=== PATIENT | male | born 1965 | race American Indian/Alaskan Native ===

== ENCOUNTER 2017-05-02 13:36 | Inpatient (IN) | payer OTHER ==
[2017-05-02] MEDS ORDERED: CLEOCIN 600 MG/50 mL 600 MG/50 ML BAG IV ONE (15:38)
[2017-05-02] MEDS ORDERED: ZOFRAN IV ONE (15:47)
[2017-05-02] MEDS ORDERED: MORPHINE IV ONE (15:47)
[2017-05-02 15:59] LABS: Basophils # (Auto) 0.1 K/mm3 (0.0-0.1); Basophils % (Auto) 0.4 % (0.0-1.8); Eosinophils % (Auto) 0.1 % (0.0-4.3); Hematocrit 39.7 % (35.5-45.6); Hemoglobin 13.1 gm/dl (11.8-15.2); Lymphocytes # (Auto) 0.5 K/mm3 (1.2-5.4); Lymphocytes % (Auto) 4.5 % (13.4-35.0); Mean Corpuscular HGB Conc 33 % (32-34); Mean Corpuscular Hemoglobin 29 pg (28-32); Mean Corpuscular Volume 88 fl (84-94); Monocytes % (Auto) 8.2 % (0.0-7.3); Platelet Count 154 K/mm3 (140-440); Red Blood Count 4.52 M/mm3 (3.65-5.03); Red Cell Distribution Width 14.6 % (13.2-15.2)
--- NOTE | 2017-05-02 16:13 | Emergency Department Report ---
Abscess Boil HPI - HPI Chief Complaint: Skin/Abscess/Foreign Body Stated Complaint: POSS STAPH INFECTION Time Seen by Provider: 05/02/17 15:28 Duration: 2 Days Location: Other (right groin) History: Yes Pain, Yes Purulent Drainage, Yes Previous History, No Fever, No Numbness, No Foreign Body, No Insect Bite HPI: This is a 52-year-old male nontoxic, well nourished in appearance, no acute signs of distress presents to the ED with c/o of right groin abscess. Patient stated symptoms started last week and started to drain 3 days ago. Patient had similar episode last year on the left groin and that it lanced and subsided. Patient denies any testicular pain. Patient denies any fever, chills , nausea, vomiting, headache, stiff neck, abdominal pain, numbness or tingling. Patient denies any chest pain or shortness of breath. Patient denies any allergies. Past medical history includes diabetes and CHF. Allergies/Adverse Reactions: Allergies Allergy/AdvReac Type Severity Reaction Status Date / Time No Known Allergies Allergy Unverified 06/02/14 09:21 ED Review of Systems ROS: Stated complaint: POSS STAPH INFECTION Other details as noted in HPI Constitutional: denies: chills, fever Eyes: denies: eye pain, eye discharge, vision change ENT: denies: ear pain, throat pain Respiratory: denies: cough, shortness of breath, wheezing Cardiovascular: denies: chest pain, palpitations Endocrine: no symptoms reported Gastrointestinal: denies: abdominal pain, nausea, diarrhea Genitourinary: denies: urgency, dysuria Musculoskeletal: denies: back pain, joint swelling, arthralgia Skin: denies: rash, lesions Neurological: denies: headache, weakness, paresthesias Psychiatric: denies: anxiety, depression Hematological/Lymphatic: denies: easy bleeding, easy bruising ED Past Medical Hx - Past Medical History Hx Congestive Heart Failure: Yes Hx Diabetes: Yes - Social History Smoking Status: Never Smoker Substance Use Type: Alcohol ED Abscess Boil Physical Exam - Exam General: Vital signs noted. No distress. Alert and acting appropriately. GENERAL: The patient is a well-developed, well-nourished in no apparent distress. Patient is alert and acting appropriately for age. Alert and oriented 3, no apparent distress, normal gait, atraumatic. HEENT: Head is normocephalic and atraumatic. PERRL, Extraocular muscles are intact. Pupils are equal, round, and reactive to light and accommodation. Nares appeared normal. Mouth is well hydrated and without lesions. Mucous membranes are moist. Posterior pharynx clear of any exudate or lesions. Mouth is well hydrated and without lesions. Tonsils not erythematous or swollen. Uvula midline. Tongue elevated. Mucous members are moist. Posterior pharynx clear, no exudate or lesions. Patent airways. NECK: Supple. No carotid bruits. No lymphadenopathy or thyromegaly.nontender. No meningitic signs are noted. LUNGS: Clear to auscultation. Non labor breathing. No intercostal retractions. Symmetrical with respiration, no wheezing, no rales, or crackles. HEART: Regular rate and rhythm without murmur, rubs or gallops. No reproducible. S1, S2 present, regular rate and rhythm without murmur, no rubs, no gallops. ABDOMEN: Soft, nontender, and nondistended. Positive bowel sounds. No hepatosplenomegaly was noted. No guarding or rebound tenderness, negative epigastric bruit. Negative psoas sign, negative cruz sign, negative McBurneys sign EXTREMITIES: Without any cyanosis, clubbing, rash, lesions or edema. Peripheral pulses intact. Capillary refill less than 2 seconds. Full range of motion bilaterally. NEUROLOGIC: Cranial nerves II through XII are grossly intact. Alert and oriented x 3. Normal gait. Symmetrical strength and sensation. Reflexes 2+ throughout. Cerebellar testing normal. GCS score of 15. PSYCHIATRIC: Normal affect with no suicidal or homicidal ideations. Skin: 8-10 cm abscess with purulent drainage of right groin leading to perianal region. Positive induration or fluctuance. Size: >5 cm Exam: Yes Tenderness, Yes Fluctuance, Yes Surrounding Cellulites/Erythema, Yes Normal Neurologic Exam, Yes Normal Circulation, No Lymphangitis, No Crepitation , No Heart Murmur I & D Note - I & D Note I & D Note: Under sterile field, I used Betadine to cleanse the area. I then used 2% Lidocaine plain with 25-gauge 5/8 needle to inject area for anesthetic purposes. Total volume injected 3 mL. I then used an 11 blade to make a 2 cm incision. Purulent drainage has been noted. I then used a hemostat to break the abscess formation. I then used sterile 0.9% normal saline flush to flush the wound with total volume of 40 mL used. I then put a 1/2 iodoform packing to the incision. A sterile 4 x 4 with tape has been applied as dressing. Bleeding is under control. Patient tolerated the procedure well with no signs of distress noted. ED Course Vital Signs 05/02/17 14:08 Temperature 98.7 F Pulse Rate 100 H Respiratory 16 Rate Blood Pressure 133/79 O2 Sat by Pulse 98 Oximetry - Reevaluation(s) Reevaluation #1: 05/02/17 16:27 Patient is speaking in full sentences with no signs of distress noted. - Consultations Consultation #1: 05/02/17 16:27 Patient has been consulted with Dr. Mike V about patient history, physical exam, and labs and agrees to ED plan of care and admission for IV antibiotics. Consultation #2: 05/02/17 16:27 Dr. Arenas was consulted and accepts patient under his services. Critical care attestation.: If time is entered above; I have spent that time in minutes in the direct care of this critically ill patient, excluding procedure time. ED Medical Decision Making - Lab Data Result diagrams: 05/02/17 15:51 05/02/17 15:51 - Medical Decision Making This is a 52-year-old male that presents with cellulitis and abscess. Patient is stable and was examined by me and Dr. Mckeon. The abscess was lanched to get more purulent drainage. Patient tolerated well. Dr. Arenas accepts patient to his services. Patient received 600 mg Clindamycin in the ED. As a verbal order from Dr. Mike V, patient received 10 units IV of regular insulin. Labs obtained. Patient was put on a monitor. Vital signs are stable. At time of admission, the patient does not seem toxic or ill in appearance. No acute signs of distress noted. Patient agrees to admission treatment plan of care. No further questions noted by the patient. ED Disposition Clinical Impression: Abscess, Encounter for incision and drainage procedure Cellulitis Qualifiers: Site of cellulitis: unspecified site Qualified Code(s): L03.90 - Cellulitis, unspecified Disposition: 09 OP ADMIT IP TO THIS HOSP Is pt being admited?: Yes Condition: Stable
[2017-05-02 16:28] LABS: Calcium 8.5 mg/dL (8.4-10.2)
[2017-05-02] MEDS ORDERED: HumuLIN R IV ONE (16:45)
[2017-05-02] MEDS ORDERED: SODIUM CHLORIDE FLUSH SYRINGE 10 ML IV PRN (21:37)
[2017-05-02] MEDS ORDERED: ZOFRAN IV PRN (21:37)
--- NOTE | 2017-05-02 21:37 | History and Physical Report ---
History of Present Illness Date of examination: 05/02/17 Date of admission: 05/02/17 17:44 Chief complaint: CC Rt groin abscess History of present illness: [place]: [id number] AA male well nourished in appearance with pmh of HTN and CHF , no acute signs of distress presents to the ED with c/o of right groin abscess. Patient stated symptoms started last week and started to drain 3 days ago. Patient had similar episode last year on the left groin and that it lanced and subsided. Patient denies any testicular pain. Patient denies any fever, chills , nausea, vomiting, headache, stiff neck, abdominal pain, numbness or tingling. Patient denies any chest pain or shortness of breath. Patient denies any allergies. No Orthopnea Had similar abscess in L groin in the past Abscess was drained in ER and drain was kept. . Past Medical History Congestive Heart Failure: Yes Diabetes: Yes Social History Smoking Status: Never Smoker Substance Use Type: Alcohol Surgical history I &D of abscess Family history Htn Review of Systems ROS: Stated complaint: POSS STAPH INFECTION Other details as noted in HPI Constitutional: denies: chills, fever Eyes: denies: eye pain, eye discharge, vision change ENT: denies: ear pain, throat pain Respiratory: denies: cough, shortness of breath, wheezing Cardiovascular: denies: chest pain, palpitations Endocrine: no symptoms reported Gastrointestinal: denies: abdominal pain, nausea, diarrhea Genitourinary: denies: urgency, dysuria Musculoskeletal: denies: back pain, joint swelling, arthralgia Skin: denies: rash, lesions Neurological: denies: headache, weakness, paresthesias Psychiatric: denies: anxiety, depression Hematological/Lymphatic: denies: easy bleeding, easy bruising Medications and Allergies Allergies Allergy/AdvReac Type Severity Reaction Status Date / Time No Known Allergies Allergy Unverified 06/02/14 09:21 Exam - Constitutional Vitals: Temp Pulse Resp BP Pulse Ox 99.6 F 84 19 124/60 97 05/02/17 17:21 05/02/17 17:21 05/02/17 17:21 05/02/17 17:21 05/02/17 17:21 General appearance: Present: no acute distress, well-nourished - EENT Eyes: Present: PERRL ENT: hearing intact, clear oral mucosa - Neck Neck: Present: supple, normal ROM - Respiratory Respiratory effort: normal Respiratory: bilateral: CTA - Cardiovascular Heart rate: 76 Rhythm: regular Heart Sounds: Present: S1 & S2. Absent: rub, click - Extremities Extremities: no ischemia, pulses intact, pulses symmetrical, No edema, abnormal (Rt Groin abscess s/p I/D with drain.Swelling and erythema present) Peripheral Pulses: within normal limits - Abdominal General gastrointestinal: Present: soft, non-tender, non-distended, normal bowel sounds Male genitourinary: Present: normal - Integumentary Integumentary: Present: clear, warm, dry - Musculoskeletal Musculoskeletal: gait normal, strength equal bilaterally - Psychiatric Psychiatric: appropriate mood/affect, intact judgment & insight - Neurologic Neurologic: CNII-XII intact, moves all extremities - Allied Health Allied health notes reviewed: nursing, case management Results - Labs CBC & Chem 7: 05/03/17 05:28 05/02/17 15:51 Labs: Laboratory Last Values WBC 11.7 K/mm3 (4.5-11.0) H 05/02/17 15:51 RBC 4.52 M/mm3 (3.65-5.03) 05/02/17 15:51 Hgb 13.1 gm/dl (11.8-15.2) 05/02/17 15:51 Hct 39.7 % (35.5-45.6) 05/02/17 15:51 MCV 88 fl (84-94) 05/02/17 15:51 MCH 29 pg (28-32) 05/02/17 15:51 MCHC 33 % (32-34) 05/02/17 15:51 RDW 14.6 % (13.2-15.2) 05/02/17 15:51 Plt Count 154 K/mm3 (140-440) 05/02/17 15:51 Lymph % (Auto) 4.5 % (13.4-35.0) L 05/02/17 15:51 [place] % (Auto) 8.2 % (0.0-7.3) H 05/02/17 15:51 Eos % (Auto) 0.1 % (0.0-4.3) 05/02/17 15:51 Baso % (Auto) 0.4 % (0.0-1.8) 05/02/17 15:51 Lymph # 0.5 K/mm3 (1.2-5.4) L 05/02/17 15:51 [place] # 1.0 K/mm3 (0.0-0.8) H 05/02/17 15:51 Eos # 0.0 K/mm3 (0.0-0.4) 05/02/17 15:51 Baso # 0.1 K/mm3 (0.0-0.1) 05/02/17 15:51 Seg Neutrophils % 86.8 % (40.0-70.0) H 05/02/17 15:51 Seg Neutrophils # 10.1 K/mm3 (1.8-7.7) H 05/02/17 15:51 Sodium 128 mmol/L (137-145) L 05/02/17 15:51 Potassium 4.5 mmol/L (3.6-5.0) 05/02/17 15:51 Chloride 88.5 mmol/L (98-107) L 05/02/17 15:51 Carbon Dioxide 22 mmol/L (22-30) 05/02/17 15:51 Anion Gap 22 mmol/L 05/02/17 15:51 BUN 19 mg/dL (9-20) 05/02/17 15:51 Creatinine 1.5 mg/dL (0.8-1.5) 05/02/17 15:51 Estimated GFR 60 ml/min 05/02/17 15:51 BUN/Creatinine Ratio 13 % 05/02/17 15:51 Glucose 512 mg/dL (75-100) H* 05/02/17 15:51 POC Glucose 318 (70-105) H 05/02/17 19:05 Calcium 8.5 mg/dL (8.4-10.2) 05/02/17 15:51 Assessment and Plan Advance Directives: Yes (Full code) VTE prophylaxis?: Chemical Plan of care discussed with patient/family: Yes - Patient Problems (1) Cellulitis Current Visit: Yes Status: Acute Qualifiers: Site of cellulitis: extremity Site of cellulitis of extremity: lower extremity Plan to address problem: Rt Groin abscess drained Admitted for High Blood Glucose and IV Clindamycin Surg consult requested (2) Hyperosmolar non-ketotic state in patient with type 2 diabetes mellitus Current Visit: Yes Status: Acute Plan to address problem: Precipitated by Abscess infection HIgh dose S/s coverage Adjust Hypoglycemics at discharge (3) Hyponatremia Current Visit: Yes Status: Acute Plan to address problem: Sec to High Glucose levels Will correct with correction of Glucose levels (4) HTN (hypertension) Current Visit: Yes Status: Chronic Qualifiers: Hypertension type: essential hypertension Qualified Code(s): I10 - Essential (primary) hypertension Plan to address problem: Cont Antihypertensives (5) CHF (congestive heart failure) Current Visit: Yes Status: Chronic Qualifiers: Heart failure type: combined systolic and diastolic Heart failure chronicity: chronic Qualified Code(s): I50.42 - Chronic combined systolic ( congestive) and diastolic (congestive) heart failure Plan to address problem: Stable Check ECHO for EF (6) DVT prophylaxis Current Visit: Yes Status: Acute Plan to address problem: On Heparin/Lovenox
[2017-05-02] MEDS ORDERED: DILAUDID IV PRN (21:38)
[2017-05-02] MEDS ORDERED: AMBIEN PO PRN (21:38)
[2017-05-02] MEDS ORDERED: MORPHINE IV PRN (21:38)
[2017-05-02] MEDS ORDERED: VANCOMYCIN PHARMACY TO DOSE IV SCH (22:00)
[2017-05-02] MEDS ORDERED: NACL 0.9% 1000 ML 1,000 ML IV SCH (22:00)
[2017-05-02] MEDS ORDERED: VANCOMYCIN 2,000 MG in NACL 0.9% 500 ML 500 ML IV ONE (23:00)
[2017-05-02] MEDS: SODIUM CHLORIDE FLUSH SYRINGE 10 ML IV SCH (23:20)
[2017-05-02] MEDS: PEPCID PO SCH (23:20)
[2017-05-02] MEDS: CLEOCIN 900 MG/50 mL 900 MG/50 ML BAG IV SCH (23:20)
[2017-05-02] MEDS: HEPARIN SUB-Q SCH (23:21)
[2017-05-02] MEDS: HumaLOG SUB-Q SCH (23:50)
[2017-05-03] MEDS: CLEOCIN 900 MG/50 mL 900 MG/50 ML BAG IV SCH ×3 (05:59→23:16)
[2017-05-03] MEDS: TYLENOL PO PRN (06:04)
[2017-05-03 06:23] LABS: Basophils % (Auto) 0.3 % (0.0-1.8); Eosinophils # (Auto) 0.1 K/mm3 (0.0-0.4); Eosinophils % (Auto) 0.7 % (0.0-4.3); Hematocrit 34.8 % (35.5-45.6); Hemoglobin 11.8 gm/dl (11.8-15.2); Lymphocytes # (Auto) 0.6 K/mm3 (1.2-5.4); Lymphocytes % (Auto) 5.9 % (13.4-35.0); Mean Corpuscular HGB Conc 34 % (32-34); Mean Corpuscular Hemoglobin 30 pg (28-32); Mean Corpuscular Volume 88 fl (84-94); Monocytes # (Auto) 1.3 K/mm3 (0.0-0.8); Monocytes % (Auto) 12.2 % (0.0-7.3); Platelet Count 152 K/mm3 (140-440); Red Blood Count 3.97 M/mm3 (3.65-5.03); Red Cell Distribution Width 14.1 % (13.2-15.2)
[2017-05-03 06:48] LABS: Albumin 2.8 g/dL (3.9-5); Calcium 8.1 mg/dL (8.4-10.2)
[2017-05-03] MEDS ORDERED: LANTUS SUB-Q SCH (08:00)
[2017-05-03] MEDS: HEPARIN SUB-Q SCH ×2 (09:54→23:17)
[2017-05-03] MEDS: COZAAR PO SCH (09:55)
[2017-05-03] MEDS: HumaLOG SUB-Q SCH ×4 (09:55→13:40)
[2017-05-03] MEDS: SODIUM CHLORIDE FLUSH SYRINGE 10 ML IV SCH ×2 (10:00→22:00)
[2017-05-03] MEDS: PEPCID PO SCH ×2 (11:30→23:19)
--- NOTE | 2017-05-03 11:38 | Consultation ---
History of Present Illness Consult date: 05/03/17 Reason for consult: other (right groin pain) Requesting physician: ESDRAS FELIZ Chief complaint: Right groin pain - History of present illness History of present illness: 52-year-old male presented to the emergency department with new onset right groin pain. Patient reports that he had a left groin abscess a number of years ago. This pain feels the same. He began to feel ill over the weekend. Began to notice right groin pain developing on Monday. Yesterday the pain was unbearable and then he decided to come to the emergency room. He feels that he has had low-grade fevers. Denies chills, nausea, vomiting. As radiation of pain. Denies extension of erythema. In the emergency room, the right groin abscess was I&D'd. He feels better now. Past History Past Medical History: diabetes, heart failure, hypertension Past Surgical History: Other (left groin I&D) Social history: alcohol abuse (occasional). denies: smoking, prescription drug abuse, IV drug use Family history: no significant family history Medications and Allergies Allergies Allergy/AdvReac Type Severity Reaction Status Date / Time No Known Allergies Allergy Unverified 06/02/14 09:21 Active Meds: Active Medications Acetaminophen (Tylenol) 650 mg PO Q4H PRN PRN Reason: Pain MILD(1-3)/Fever >100.5/ALVAREZ Last Admin: 05/03/17 06:04 Dose: 650 mg Famotidine (Pepcid) 20 mg PO BID [facility] Last Admin: 05/02/17 23:20 Dose: 20 mg Heparin Sodium (Porcine) (Heparin) 5,000 unit SUB-Q Q12HR [facility] Last Admin: 05/03/17 09:54 Dose: 5,000 unit Hydromorphone HCl (Dilaudid) 1 mg IV Q3H PRN PRN Reason: Pain , Severe (7-10) Clindamycin HCl (Cleocin 900 Mg/50 Ml) 900 mg in 50 mls @ 100 mls/hr IV Q8HR [facility]; Protocol Last Admin: 05/03/17 05:59 Dose: 100 mls/hr Vancomycin HCl 1,750 mg/ (Sodium Chloride) 517.5 mls @ 333.333 mls/hr IV Q24H [facility] Insulin Glargine (Lantus) 20 units SUB-Q QAMDIAB [facility] Insulin Human Lispro (Humalog) 0 unit SUB-Q ACHS [facility]; Protocol Last Admin: 05/03/17 09:57 Dose: 10 unit Insulin Human Lispro (Humalog) 6 unit SUB-Q AC [facility] Last Admin: 05/03/17 09:55 Dose: 6 unit Losartan Potassium (Cozaar) 50 mg PO QDAY [facility] Last Admin: 05/03/17 09:55 Dose: 50 mg Morphine Sulfate (Morphine) 2 mg IV Q4H PRN PRN Reason: Pain, Moderate (4-6) Ondansetron HCl (Zofran) 4 mg IV Q8H PRN PRN Reason: Nausea And Vomiting Oxycodone/Acetaminophen (Percocet 5/325) 1 tab PO Q6H PRN PRN Reason: Pain, Moderate (4-6) Sodium Chloride (Sodium Chloride Flush Syringe 10 Ml) 10 ml IV BID [facility] Last Admin: 05/02/17 23:20 Dose: 10 ml Sodium Chloride (Sodium Chloride Flush Syringe 10 Ml) 10 ml IV PRN PRN PRN Reason: LINE FLUSH Vancomycin HCl (Vancomycin Pharmacy To Dose) 1 each IV PKCONSULT [facility]; Protocol Zolpidem Tartrate (Ambien) 5 mg PO QHS PRN PRN Reason: Insomnia Review of Systems - Constitutional fever (mild), no chills, no sweats, no weakness - Cardiovascular no chest pain, no palpitations, no rapid/irregular heart beat - Respiratory no cough, no cough with sputum, no shortness of breath - Gastrointestinal no abdominal pain, no nausea, no vomiting - Genitourinary no dysuria, no discharge, no genital pain, no testicular pain - Muskuloskeletal no leg numbness/tingling - Integumentary boils (right groin - foul smelling drainage when I&D done in ED) Exam Vital Signs Temp Pulse Resp BP Pulse Ox 98.7 F 100 H 16 133/79 98 05/02/17 14:08 05/02/17 14:08 05/02/17 14:08 05/02/17 14:08 05/02/17 14:08 - General physical appearance Positive: well developed, well nourished, no distress, no pain - Eyes Positive: normal occular movement - Respiratory Positive: normal expansion, normal respiratory effort - Extremities Extremities: No edema, normal temperature, normal color - Genitourinary Male Genitourinary: scrotal edema (1 cm incision was noted at the junction of the medial aspect of the groin and the top of the scrotum on the right. Packing was in place. Surrounding to centimeter in diameter area was indurated. No erythema was seen. There is no active drainage. No foul smell was noted. Tenderness was minimal. The rest of the scrotum and right groin were normal. Left groin was normal.) - Integumentary no rash - Neurologic Neurologic: alert and oriented to time, place and person, motor strength and sensation are grossly intact - Psychiatric Psychiatric: appropriate mood/affect, intact judgment & insight, memory intact, cooperative Results - Labs 05/03/17 05:28 05/03/17 05:28 Abnormal lab results 05/02/17 05/02/17 05/02/17 Range/Units 15:51 15:51 17:23 WBC 11.7 H (4.5-11.0) K/mm3 Hct (35.5-45.6) % Lymph % (Auto) 4.5 L (13.4-35.0) % Iron % (Auto) 8.2 H (0.0-7.3) % Lymph # 0.5 L (1.2-5.4) K/mm3 Iron # 1.0 H (0.0-0.8) K/mm3 Seg Neutrophils % 86.8 H (40.0-70.0) % Seg Neutrophils # 10.1 H (1.8-7.7) K/mm3 Sodium 128 L (137-145) mmol/L Chloride 88.5 L (98-107) mmol/L Carbon Dioxide (22-30) mmol/L BUN (9-20) mg/dL Glucose 512 H* (75-100) mg/dL POC Glucose 402 H (70-105) Hemoglobin A1c (4-6) % Calcium (8.4-10.2) mg/dL Albumin (3.9-5) g/dL 05/02/17 05/02/17 05/02/17 Range/Units 19:05 21:50 21:55 WBC (4.5-11.0) K/mm3 Hct (35.5-45.6) % Lymph % (Auto) (13.4-35.0) % Iron % (Auto) (0.0-7.3) % Lymph # (1.2-5.4) K/mm3 Iron # (0.0-0.8) K/mm3 Seg Neutrophils % (40.0-70.0) % Seg Neutrophils # (1.8-7.7) K/mm3 Sodium (137-145) mmol/L Chloride (98-107) mmol/L Carbon Dioxide (22-30) mmol/L BUN (9-20) mg/dL Glucose (75-100) mg/dL POC Glucose 318 H 293 H (70-105) Hemoglobin A1c 15.2 H (4-6) % Calcium (8.4-10.2) mg/dL Albumin (3.9-5) g/dL 05/03/17 05/03/17 05/03/17 Range/Units 05:28 05:28 08:01 WBC (4.5-11.0) K/mm3 Hct 34.8 L (35.5-45.6) % Lymph % (Auto) 5.9 L (13.4-35.0) % Iron % (Auto) 12.2 H (0.0-7.3) % Lymph # 0.6 L (1.2-5.4) K/mm3 Iron # 1.3 H (0.0-0.8) K/mm3 Seg Neutrophils % 80.9 H (40.0-70.0) % Seg Neutrophils # 8.6 H (1.8-7.7) K/mm3 Sodium 131 L (137-145) mmol/L Chloride 92.7 L (98-107) mmol/L Carbon Dioxide 21 L (22-30) mmol/L BUN 21 H (9-20) mg/dL Glucose 418 H (75-100) mg/dL POC Glucose 371 H (70-105) Hemoglobin A1c (4-6) % Calcium 8.1 L (8.4-10.2) mg/dL Albumin 2.8 L (3.9-5) g/dL Diabetes panel 05/02/17 05/02/17 05/03/17 Range/Units 15:51 21:50 05:28 Sodium 128 L 131 L (137-145) mmol/L Potassium 4.5 4.3 (3.6-5.0) mmol/L Chloride 88.5 L 92.7 L (98-107) mmol/L Carbon Dioxide 22 21 L (22-30) mmol/L BUN 19 21 H (9-20) mg/dL Creatinine 1.5 1.5 (0.8-1.5) mg/dL Glucose 512 H* 418 H (75-100) mg/dL Hemoglobin A1c 15.2 H (4-6) % Calcium 8.5 8.1 L (8.4-10.2) mg/dL AST 7 (5-40) units/L ALT 8 (7-56) units/L Alkaline Phosphatase 77 (35-129) units/L Total Protein 6.7 (6.3-8.2) g/dL Albumin 2.8 L (3.9-5) g/dL Calcium panel 05/02/17 05/03/17 Range/Units 15:51 05:28 Calcium 8.5 8.1 L (8.4-10.2) mg/dL Albumin 2.8 L (3.9-5) g/dL Pituitary panel 05/02/17 05/03/17 Range/Units 15:51 05:28 Sodium 128 L 131 L (137-145) mmol/L Potassium 4.5 4.3 (3.6-5.0) mmol/L Chloride 88.5 L 92.7 L (98-107) mmol/L Carbon Dioxide 22 21 L (22-30) mmol/L BUN 19 21 H (9-20) mg/dL Creatinine 1.5 1.5 (0.8-1.5) mg/dL Glucose 512 H* 418 H (75-100) mg/dL Calcium 8.5 8.1 L (8.4-10.2) mg/dL Adrenal panel 05/02/17 05/03/17 Range/Units 15:51 05:28 Sodium 128 L 131 L (137-145) mmol/L Potassium 4.5 4.3 (3.6-5.0) mmol/L Chloride 88.5 L 92.7 L (98-107) mmol/L Carbon Dioxide 22 21 L (22-30) mmol/L BUN 19 21 H (9-20) mg/dL Creatinine 1.5 1.5 (0.8-1.5) mg/dL Glucose 512 H* 418 H (75-100) mg/dL Calcium 8.5 8.1 L (8.4-10.2) mg/dL Total Bilirubin 0.40 (0.1-1.2) mg/dL AST 7 (5-40) units/L ALT 8 (7-56) units/L Alkaline Phosphatase 77 (35-129) units/L Total Protein 6.7 (6.3-8.2) g/dL Albumin 2.8 L (3.9-5) g/dL Assessment and Plan - Patient Problems (1) Abscess Current Visit: Yes Status: Acute Plan to address problem: Patient stable. WBC is normal today. Patient is afebrile. We recommend that we begin with basic wound care. Orders have been placed. If patient is not responding or getting worse, then will consider further evaluation in the operating room. Will follow along. Thank you. Time=45min
--- NOTE | 2017-05-03 17:47 | Progress Note ---
Assessment and Plan Assessment and plan: Assessment Poorly controlled DM II 2/2 med noncompliance. HTN, essen, chronic Right Groin abscess Morbid Obesity 2/2 excess calories. LIANG, ? CKD Med noncompliance Right groin pain. Plan increase Lantus to 20 units BID Add Regular Insulin 10 units QAC Obtain ID consult continue IV abx add Levaquin am labs inputs and reccs of the surgeon appreciated further pt mgt per hospital course dvt and GI ulcer prophylaxis f/u culture results More than 35 mins spent of which more than 50% was spent in pt counseling and coordination of care History Interval history: Pt seen and exam, feels better, Denies CP/SOB. Exam groin with RN by bedside. Pt admitted intermittent noncompliance with his Insulin. He work schedule is 3am to 12 noon. The Gen surgeon's note reviewed, inputs and reccs appreciated. No family at bedside during this encounter. Multiple questions were answered to the best of my ability. BG remains uncontrolled. Hospitalist Physical - Constitutional Vitals: Temp Pulse Resp BP Pulse Ox 98.5 F 73 18 144/87 97 05/03/17 11:30 05/03/17 11:30 05/03/17 11:30 05/03/17 11:30 05/03/17 07:56 General appearance: Present: no acute distress, well-nourished, obese, other ( morbid obesity) - EENT Eyes: Present: PERRL, EOM intact ENT: hearing intact, clear oral mucosa, dentition normal - Neck Neck: Present: supple, normal ROM - Respiratory Respiratory effort: normal Respiratory: bilateral: CTA - Cardiovascular Rhythm: regular Heart Sounds: Present: S1 & S2 - Extremities Extremities: no ischemia, pulses intact, pulses symmetrical, No edema Peripheral Pulses: within normal limits - Abdominal General gastrointestinal: soft, non-tender, non-distended, normal bowel sounds, other (right groin with Erythema, swelling, firm, tenderness. ) - Integumentary Integumentary: Present: clear, warm, dry - Psychiatric Psychiatric: appropriate mood/affect, intact judgment & insight, memory intact - Neurologic Neurologic: CNII-XII intact, moves all extremities Results - Labs CBC & Chem 7: 05/03/17 05:28 05/03/17 05:28 Labs: Laboratory Last Values WBC 10.7 K/mm3 (4.5-11.0) 05/03/17 05:28 RBC 3.97 M/mm3 (3.65-5.03) 05/03/17 05:28 Hgb 11.8 gm/dl (11.8-15.2) 05/03/17 05:28 Hct 34.8 % (35.5-45.6) L 05/03/17 05:28 MCV 88 fl (84-94) 05/03/17 05:28 MCH 30 pg (28-32) 05/03/17 05:28 MCHC 34 % (32-34) 05/03/17 05:28 RDW 14.1 % (13.2-15.2) 05/03/17 05:28 Plt Count 152 K/mm3 (140-440) 05/03/17 05:28 Lymph % (Auto) 5.9 % (13.4-35.0) L 05/03/17 05:28 [place] % (Auto) 12.2 % (0.0-7.3) H 05/03/17 05:28 Eos % (Auto) 0.7 % (0.0-4.3) 05/03/17 05:28 Baso % (Auto) 0.3 % (0.0-1.8) 05/03/17 05:28 Lymph # 0.6 K/mm3 (1.2-5.4) L 05/03/17 05:28 [place] # 1.3 K/mm3 (0.0-0.8) H 05/03/17 05:28 Eos # 0.1 K/mm3 (0.0-0.4) 05/03/17 05:28 Baso # 0.0 K/mm3 (0.0-0.1) 05/03/17 05:28 Seg Neutrophils % 80.9 % (40.0-70.0) H 05/03/17 05:28 Seg Neutrophils # 8.6 K/mm3 (1.8-7.7) H 05/03/17 05:28 Sodium 131 mmol/L (137-145) L 05/03/17 05:28 Potassium 4.3 mmol/L (3.6-5.0) 05/03/17 05:28 Chloride 92.7 mmol/L (98-107) L 05/03/17 05:28 Carbon Dioxide 21 mmol/L (22-30) L 05/03/17 05:28 Anion Gap 22 mmol/L 05/03/17 05:28 BUN 21 mg/dL (9-20) H 05/03/17 05:28 Creatinine 1.5 mg/dL (0.8-1.5) 05/03/17 05:28 Estimated GFR 60 ml/min 05/03/17 05:28 BUN/Creatinine Ratio 14 % 05/03/17 05:28 Glucose 418 mg/dL (75-100) H 05/03/17 05:28 POC Glucose 367 (70-105) H 05/03/17 16:49 Hemoglobin A1c 15.2 % (4-6) H 05/02/17 21:50 Calcium 8.1 mg/dL (8.4-10.2) L 05/03/17 05:28 Total Bilirubin 0.40 mg/dL (0.1-1.2) 05/03/17 05:28 AST 7 units/L (5-40) 05/03/17 05:28 ALT 8 units/L (7-56) 05/03/17 05:28 Alkaline Phosphatase 77 units/L (35-129) 05/03/17 05:28 Total Protein 6.7 g/dL (6.3-8.2) 05/03/17 05:28 Albumin 2.8 g/dL (3.9-5) L 05/03/17 05:28 Albumin/Globulin Ratio 0.7 % 05/03/17 05:28 - Imaging and Cardiology Chest x-ray: report reviewed
[2017-05-03] MEDS: HumuLIN R SUB-Q SCH (18:49)
[2017-05-03] MEDS ORDERED: LEVAQUIN PO SCH (20:00)
[2017-05-04] MEDS: VANCOMYCIN 1,750 MG in NACL 0.9% 500 ML 500 ML IV SCH ×2 (00:25→23:39)
[2017-05-04] MEDS: HumuLIN R SUB-Q SCH ×5 (00:51→22:19)
[2017-05-04] MEDS: LANTUS SUB-Q SCH ×3 (00:52→22:19)
[2017-05-04 02:02] LABS: BUN/Creatinine Ratio 14; Blood Urea Nitrogen 19 mg/dL (9-20); Calcium 7.8 mg/dL (8.4-10.2); Hemolysis Index 3
[2017-05-04] MEDS: CLEOCIN 900 MG/50 mL 900 MG/50 ML BAG IV SCH ×2 (06:09→14:15)
--- NOTE | 2017-05-04 07:47 | Progress Note ---
Assessment and Plan Assessment Right Groin abscess s/p I&D Poorly controlled DM II 2/2 med noncompliance. HTN, essen, chronic Morbid Obesity 2/2 excess calories. LIANG, ? CKD Med noncompliance Right groin pain. Plan increase Lantus to 20 units BID Add Regular Insulin 10 units QAC Obtain ID consult continue IV abx add Levaquin am labs inputs and recs of the surgeon reviewed and appreciated further pt mgt per hospital course dvt and GI ulcer prophylaxis Culture results no growth so far. continue to follow Subjective Date of service: 05/04/17 Principal diagnosis: DMT2, right groin abcess s/p I and D Interval history: Pt seen and examined. No new complaint Objective - Constitutional Vitals: Vital Signs - 12hr 05/03/17 05/04/17 05/04/17 20:10 00:10 04:31 Temperature 100.2 F H 100.1 F H 99.6 F Pulse Rate 95 H 95 H 84 Respiratory 20 20 18 Rate Blood Pressure 131/80 118/73 130/81 [Right] O2 Sat by Pulse 97 98 98 Oximetry General appearance: Present: no acute distress, well-nourished - EENT Eyes: PERRL, EOM intact Ears: bilateral: normal - Neck Neck: supple, normal ROM - Respiratory Respiratory effort: normal Respiratory: bilateral: CTA - Cardiovascular Rhythm: regular Heart Sounds: Present: S1 & S2. Absent: gallop, rub Extremities: pulses intact, No edema, normal color, Full ROM - Gastrointestinal General gastrointestinal: Present: soft, non-tender, non-distended, normal bowel sounds - Genitourinary Male genitourinary: normal - Integumentary Integumentary: clear, warm, dry - Musculoskeletal Musculoskeletal: 1, strength equal bilaterally - Neurologic Neurologic: moves all extremities - Psychiatric Psychiatric: memory intact, appropriate mood/affect, intact judgment & insight - Labs CBC & Chem 7: 05/03/17 05:28 05/04/17 00:44 Labs: Abnormal lab results 05/03/17 05/03/17 05/03/17 Range/Units 08:01 13:06 16:49 Sodium (137-145) mmol/L Glucose (75-100) mg/dL POC Glucose 371 H 385 H 367 H (70-105) Calcium (8.4-10.2) mg/dL 05/04/17 Range/Units 00:44 Sodium 135 L (137-145) mmol/L Glucose 267 H (75-100) mg/dL POC Glucose (70-105) Calcium 7.8 L (8.4-10.2) mg/dL
[2017-05-04] MEDS: HEPARIN SUB-Q SCH ×2 (10:00→22:33)
[2017-05-04] MEDS: COZAAR PO SCH (10:00)
--- NOTE | 2017-05-04 10:21 | Progress Note ---
Assessment and Plan - Patient Problems (1) Abscess Current Visit: Yes Status: Acute Plan to address problem: Patient stable. Afebrile this morning. He reports that he did not get his sitz baths and dressing change as ordered yesterday. They have told him that they are planning to do it this morning. I recommend that we see how the wound looks tomorrow after he's had a chance to do the sitz baths and dressing change today. If it is unchanged or looking worse, then I will probe the cavity at the bedside. If need be I will extend the incision to get better drainage. If we cannot get a good examination of the bedside, then will consider going to the operating room. Check CBC in the morning. Time=15min Subjective Date of service: 05/04/17 Patient Reports: Positive: other (overall, groin area feels better compared to when he was admitted. Still feels same amount of swelling. The dressing was not changed yesterday.) Objective Vital Signs - 12hr 05/04/17 05/04/17 05/04/17 00:10 04:31 08:10 Temperature 100.1 F H 99.6 F 98.7 F Pulse Rate 95 H 84 59 L Respiratory 20 18 20 Rate Blood Pressure 118/73 130/81 115/77 [Right] O2 Sat by Pulse 98 98 98 Oximetry - General physical appearance well developed, well nourished, no distress, no pain - Genitourinary other (packing in place with some purulent discharge. Induration extends about 3 cm at most both in a superior and inferior direction. Mild warmth as noted.) - Labs 05/03/17 05:28 05/04/17 00:44 Diabetes panel 05/04/17 Range/Units 00:44 Sodium 135 L (137-145) mmol/L Potassium 3.9 (3.6-5.0) mmol/L Chloride 98.9 (98-107) mmol/L Carbon Dioxide 22 (22-30) mmol/L BUN 19 (9-20) mg/dL Creatinine 1.4 (0.8-1.5) mg/dL Glucose 267 H (75-100) mg/dL Calcium 7.8 L (8.4-10.2) mg/dL Calcium panel 05/04/17 Range/Units 00:44 Calcium 7.8 L (8.4-10.2) mg/dL Pituitary panel 05/04/17 Range/Units 00:44 Sodium 135 L (137-145) mmol/L Potassium 3.9 (3.6-5.0) mmol/L Chloride 98.9 (98-107) mmol/L Carbon Dioxide 22 (22-30) mmol/L BUN 19 (9-20) mg/dL Creatinine 1.4 (0.8-1.5) mg/dL Glucose 267 H (75-100) mg/dL Calcium 7.8 L (8.4-10.2) mg/dL Adrenal panel 05/04/17 Range/Units 00:44 Sodium 135 L (137-145) mmol/L Potassium 3.9 (3.6-5.0) mmol/L Chloride 98.9 (98-107) mmol/L Carbon Dioxide 22 (22-30) mmol/L BUN 19 (9-20) mg/dL Creatinine 1.4 (0.8-1.5) mg/dL Glucose 267 H (75-100) mg/dL Calcium 7.8 L (8.4-10.2) mg/dL
--- NOTE | 2017-05-04 17:26 | Consultation ---
History of Present Illness - Reason for Consult Consult date: 05/04/17 groin abscess Requesting physician: BUCK AJ - History of Present Illness 52 years old male with history of uncontrolled diabetes, HTN and CHF; admitted on 05/02/2017 due to an week history of right groin tenderness, progressive edema and erythema. 3 days before admission area started to drain purulence. Patient had similar episode last year on the left groin and that it lanced and subsided. Denies any history of previous MRSA skin infection. Patient denies any fever, chills, nausea, vomiting, headache, stiff neck, abdominal pain, numbness or tingling. In the emergency room on initial temperature was 98.7, temperature 1 200.3, heart rate monitor, respirations 16, O2 sat 98, blood pressure 133/79. Initial white count 11.7. Hemoglobin 13.1. Platelets 154. Sodium 128. Creatinine 1.5. Glucose 512. 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 denies: smoking, prescription drug abuse, IV drug use Family history: no significant family history Medications and Allergies Allergies Allergy/AdvReac Type Severity Reaction Status Date / Time No Known Allergies Allergy Unverified 06/02/14 09:21 Active Meds: Active Medications Acetaminophen (Tylenol) 650 mg PO Q4H PRN PRN Reason: Pain MILD(1-3)/Fever >100.5/ALVAREZ Last Admin: 05/03/17 06:04 Dose: 650 mg Famotidine (Pepcid) 20 mg PO BID ABDULAZIZ Last Admin: 05/03/17 23:19 Dose: 20 mg Heparin Sodium (Porcine) (Heparin) 5,000 unit SUB-Q Q12HR ABDULAZIZ Last Admin: 05/03/17 23:17 Dose: 5,000 unit Hydromorphone HCl (Dilaudid) 1 mg IV Q3H PRN PRN Reason: Pain , Severe (7-10) Last Admin: 05/04/17 04:40 Dose: 1 mg Clindamycin HCl (Cleocin 900 Mg/50 Ml) 900 mg in 50 mls @ 100 mls/hr IV Q8HR [facility]; Protocol Last Admin: 05/04/17 14:15 Dose: 100 mls/hr Vancomycin HCl 1,750 mg/ (Sodium Chloride) 517.5 mls @ 333.333 mls/hr IV Q24H [facility] Last Admin: 05/04/17 00:25 Dose: 333.333 mls/hr Insulin Glargine (Lantus) 20 units SUB-Q BID [facility] Last Admin: 05/04/17 00:52 Dose: 20 units Insulin Human Regular (Humulin R) 10 units SUB-Q ACHS [facility] Last Admin: 05/04/17 13:10 Dose: 10 units Levofloxacin (Levaquin) 500 mg PO Q24H [facility] Last Admin: 05/03/17 23:17 Dose: 500 mg Losartan Potassium (Cozaar) 50 mg PO QDAY [facility] Last Admin: 05/03/17 09:55 Dose: 50 mg Morphine Sulfate (Morphine) 2 mg IV Q4H PRN PRN Reason: Pain, Moderate (4-6) Oxycodone/Acetaminophen (Percocet 5/325) 1 tab PO Q6H PRN PRN Reason: Pain, Moderate (4-6) Sodium Chloride (Sodium Chloride Flush Syringe 10 Ml) 10 ml IV BID [facility] Last Admin: 05/03/17 22:00 Dose: Not Given Sodium Chloride (Sodium Chloride Flush Syringe 10 Ml) 10 ml IV PRN PRN PRN Reason: LINE FLUSH Vancomycin HCl (Vancomycin Pharmacy To Dose) 1 each IV PKCONSULT [facility]; Protocol Zolpidem Tartrate (Ambien) 5 mg PO QHS PRN PRN Reason: Insomnia Review of Systems All systems: negative (as per the HPI. Rest of 10 point review of systems negative) Physical Examination - Physical Exam Narrative exam: General appearance: Alert in NAD, conversant Eyes: anicteric sclerae, moist conjunctivae; no lid-lag; PERRLA HENT: Atraumatic; oropharynx clear Neck: Trachea midline; supple, no thyromegaly or lymphadenopathy Lungs: CTA, with normal respiratory effort and no intercostal retractions CV: RRR, no murmurs Abdomen: Soft, non-tender; no masses or hepatosplenomegaly Extremities: Right groin induration with central wound covered with dressings. Skin: Normal temperature, turgor and texture; no rash, ulcers or subcutaneous nodules Psych: Appropriate affect, alert and oriented to person, place and time. Neuro: alert and oriented x 3. Moving all extermities Lines: No CVL / PICC - Constitutional Vitals: Vital Signs Temp Pulse Resp BP Pulse Ox 100.1 F H 89 20 142/92 97 05/04/17 16:00 05/04/17 16:00 05/04/17 16:00 05/04/17 16:00 05/04/17 16:00 Temperature -Last 24 Hours Temperature 100.1 F Temperature 99.0 F Temperature 98.7 F Temperature 99.6 F Temperature 100.1 F Temperature 100.2 F Results - Labs CBC & Chem 7: 05/03/17 05:28 05/04/17 00:44 Labs: Abnormal lab results 05/04/17 05/04/17 05/04/17 Range/Units 00:26 00:44 08:22 Sodium 135 L (137-145) mmol/L Glucose 267 H (75-100) mg/dL POC Glucose 304 H 196 H (70-105) Calcium 7.8 L (8.4-10.2) mg/dL 05/04/17 05/04/17 Range/Units 11:18 16:22 Sodium (137-145) mmol/L Glucose (75-100) mg/dL POC Glucose 247 H 248 H (70-105) Calcium (8.4-10.2) mg/dL Assessment and Plan Assessment: 1) Sepsis: Present on admission, manifested by fever, tachycardia, mild leukocytosis. Etiology most likely right groin abscess. 2) Right groin skin and soft tissue infection/abscess: Patient with history of previous left groin abscess. Unknown history of MRSA. 3) diabetes mellitus: Uncontrolled 4) Obesity 5) Hyponatremia Plan: -follow-up blood cultures -Obtain wound cultures -Patient is a patient in contact isolation on the MRSA is ruled out -Obtain C-reactive protein (CRP) -Continue vancomycin -Stop Levaquin and clindamycin -Add Unasyn Thank you for your consultation, will follow up with you. Aileen Maddox MD Infectious Diseases Specialist [facility] M [phone] O [phone]
[2017-05-04] MEDS ORDERED: UNASYN/NS 3 GM/100 ML 3 GM/100 ML BAG IV SCH (18:00)
[2017-05-04] MEDS: PEPCID PO SCH ×2 (19:19→22:33)
[2017-05-04] MEDS ORDERED: NACL ONE (21:54)
[2017-05-04] MEDS: SODIUM CHLORIDE FLUSH SYRINGE 10 ML IV SCH ×2 (22:20)
[2017-05-04] MEDS: UNASYN/NS 3 GM/100 ML 3 GM/100 ML BAG IV SCH (22:23)
--- NOTE | 2017-05-04 23:32 | Cat Scan Report ---
FINAL REPORT PROCEDURE: CT PELVIS W CON TECHNIQUE: Computerized axial tomography of the pelvis was performed following the IV injection of iodinated nonionic contrast. HISTORY: patient with sepsis and right groin abscess please COMPARISON: No prior studies are available for comparison. TECHNICAL QUALITY: Satisfactory. FINDINGS: There is soft tissue swelling in the right groin region posterior and slightly inferior to the scrotum. Minimal fluid with a few foci of air in this region is noted. No formed fluid collection is seen. A developing abscess is not excluded. With the small foci of air gas-forming bacteria in this region is possible. Further investigation with appropriate laboratory studies is recommended. There are a few enlarged lymph nodes in the right groin region, these measure up to 15 millimeters. The remainder of the soft tissues are normal. In the lower pelvis the urinary bladder shows some thickening of the bladder wall, cystitis is possible. The distal colon imaged is normal. The appendix is visualized and has a normal appearance. The vasculature is normal. Mild atherosclerosis of the aorta and branching vessels is noted. Slight degenerative changes of the lower lumbar spine. IMPRESSION: Impression There is evidence of soft tissue swelling consistent with cellulitis in the right groin region posterior and slightly inferior to the scrotum. There is some fluid in this region with a few foci of air. No formed fluid collection is seen. A developing abscess is not excluded. With small foci of air, gas-forming bacteria in this region is possible. The remaining soft tissues are normal. Slight thickening of the urinary bladder wall may represent cystitis.
[2017-05-04] MEDS: PERCOCET 5/325 PO PRN (23:39)
[2017-05-05] MEDS: UNASYN/NS 3 GM/100 ML 3 GM/100 ML BAG IV SCH ×4 (03:52→22:22)
[2017-05-05] MEDS: PERCOCET 5/325 PO PRN ×3 (06:34→19:48)
[2017-05-05 06:55] LABS: Basophils % (Auto) 0.3 % (0.0-1.8); Eosinophils # (Auto) 0.2 K/mm3 (0.0-0.4); Eosinophils % (Auto) 1.4 % (0.0-4.3); Hematocrit 35.7 % (35.5-45.6); Hemoglobin 11.5 gm/dl (11.8-15.2); Lymphocytes # (Auto) 0.8 K/mm3 (1.2-5.4); Lymphocytes % (Auto) 7.3 % (13.4-35.0); Mean Corpuscular HGB Conc 32 % (32-34); Mean Corpuscular Hemoglobin 28 pg (28-32); Mean Corpuscular Volume 89 fl (84-94); Monocytes # (Auto) 1.3 K/mm3 (0.0-0.8); Monocytes % (Auto) 11.1 % (0.0-7.3); Platelet Count 187 K/mm3 (140-440); Red Blood Count 4.04 M/mm3 (3.65-5.03); Red Cell Distribution Width 13.9 % (13.2-15.2)
[2017-05-05] MEDS ORDERED: NACL 0.9% 0 ML IR ONE (09:06)
[2017-05-05] MEDS: HumuLIN R SUB-Q SCH ×4 (09:29→22:17)
[2017-05-05] MEDS: LANTUS SUB-Q SCH ×2 (09:30→22:30)
[2017-05-05] MEDS ORDERED: XYLOCAINE 2%/ EPI 1:200,000 INFILTRATI ONE (10:00)
[2017-05-05] MEDS: HEPARIN SUB-Q SCH ×2 (10:00→22:21)
[2017-05-05] MEDS ORDERED: ATIVAN PO PRN (10:00)
--- NOTE | 2017-05-05 10:31 | Progress Note ---
Assessment and Plan - Patient Problems (1) Abscess Current Visit: Yes Status: Acute Plan to address problem: Patient stable. CBC is about the same. I reviewed the CT scan of the pelvis. It seems that the main area of infection is inferior to the incision site. The probing of the wound confirmed that most of the cavity is inferior and so most likely not draining very well. I recommend that we extend incision towards the base of the scrotum. I gave him the options of doing this at the bedside versus the OR. We discussed the benefits of each. He was okay with us doing this at the bedside. I will order the necessary supplies. I'll get written consent when I come back to do the procedure. We will do it this afternoon. Time=15min Subjective Date of service: 05/05/17 Patient Reports: Positive: no new complaints, still having pain (staff reports that having difficulty with wound care due to his pain.) Objective Vital Signs - 12hr 05/05/17 05/05/17 00:57 07:55 Temperature 100.0 F H 99.0 F Pulse Rate 89 Respiratory 22 18 Rate Blood Pressure 125/88 130/83 O2 Sat by Pulse 97 Oximetry - General physical appearance well developed, well nourished, no distress - Respiratory normal expansion, normal respiratory effort - Genitourinary other (the induration, tenderness, erythema seems to extend more into the right scrotum. One was probed today. It primarily goes in an inferior direction towards the base of the scrotum. This released some additional purulent material.) - Labs 05/05/17 06:43 05/04/17 00:44
[2017-05-05] MEDS: PEPCID PO SCH ×2 (10:58→22:22)
[2017-05-05] MEDS: COZAAR PO SCH (13:36)
--- NOTE | 2017-05-05 15:17 | Procedure Note ---
Date of procedure: 05/05/17 Pre-op diagnosis: right scrotal abscess Post-op diagnosis: same Procedure: Incision and drainage Findings: 7cm cavity extending into the right side of the scrotum. +purulent fluid at the base. Implants: none Anesthesia: local (6cc 2%lidocaine with 1:200,000 epi) Surgeon: VY BRITO Estimated blood loss: minimal Pathology: none Condition: stable Disposition: floor (wound was packed by Wound Care Nurse - Joyce)
--- NOTE | 2017-05-05 16:46 | Progress Note ---
Assessment and Plan Assessment: 1) Sepsis: better. Etiology most likely right groin abscess. 2) Right groin skin and soft tissue infection/abscess: Patient with history of previous left groin abscess. Unknown history of MRSA. -S/P Bedside I+D on 05/05 -CT of pelvic showed soft tissue swelling c/with cellulitis of the right groin inferior to the scrotum and some fluid with foci of air -CRP=20.4 3) diabetes mellitus: Uncontrolled 4) Obesity 5) Hyponatremia Plan: -follow-up wound cultures -place contact isolation on the MRSA is ruled out -Continue vancomycin and unasyn I will be off until 05/09 call me if any questions. Thank you for your consultation, will follow up with you. Aileen Maddox MD Infectious Diseases Specialist [facility] M [phone] O [phone] Subjective Date of service: 05/05/17 Principal diagnosis: DMT2, right groin abcess s/p I and D Interval history: Feels ok, had bedside I+D. Still fever 100.1 Microbiology: Blood cultures: 05/02 ngtd Current Antimicrobials: unasyn 05/05 vanco Previous Antimicrobials: clinda levaquin Objective - Exam Narrative Exam: General appearance: Alert in NAD, conversant Eyes: anicteric sclerae, moist conjunctivae; no lid-lag; PERRLA HENT: Atraumatic; oropharynx clear Neck: Trachea midline; supple, no thyromegaly or lymphadenopathy Lungs: CTA, with normal respiratory effort and no intercostal retractions CV: RRR, no murmurs Abdomen: Soft, non-tender; no masses or hepatosplenomegaly Extremities: Right groin induration with central wound covered with dressings. Skin: Normal temperature, turgor and texture; no rash, ulcers or subcutaneous nodules Psych: Appropriate affect, alert and oriented to person, place and time. Neuro: alert and oriented x 3. Moving all extermities Lines: No CVL / PICC - Constitutional Vitals: Vital Signs Temp Pulse Resp BP Pulse Ox 99.0 F 87 18 139/90 99 05/05/17 12:05 05/05/17 12:06 05/05/17 12:05 05/05/17 12:05 05/05/17 12:06 Temperature -Last 24 Hours Temperature 99.0 F Temperature 99.0 F Temperature 100.0 F Temperature 99.2 F - Labs CBC & Chem 7: 05/05/17 06:43 05/04/17 00:44 Labs: Abnormal lab results 05/04/17 05/04/17 05/05/17 Range/Units 17:38 21:23 06:43 WBC 11.4 H (4.5-11.0) K/mm3 Hgb 11.5 L (11.8-15.2) gm/dl Lymph % (Auto) 7.3 L (13.4-35.0) % [place] % (Auto) 11.1 H (0.0-7.3) % Lymph # 0.8 L (1.2-5.4) K/mm3 [place] # 1.3 H (0.0-0.8) K/mm3 Seg Neutrophils % 79.9 H (40.0-70.0) % Seg Neutrophils # 9.1 H (1.8-7.7) K/mm3 POC Glucose 217 H (70-105) C-Reactive Protein 20.40 H (0.00-1.30) mg/dL 05/05/17 05/05/17 Range/Units 08:01 12:11 WBC (4.5-11.0) K/mm3 Hgb (11.8-15.2) gm/dl Lymph % (Auto) (13.4-35.0) % [place] % (Auto) (0.0-7.3) % Lymph # (1.2-5.4) K/mm3 [place] # (0.0-0.8) K/mm3 Seg Neutrophils % (40.0-70.0) % Seg Neutrophils # (1.8-7.7) K/mm3 POC Glucose 153 H 166 H (70-105) C-Reactive Protein (0.00-1.30) mg/dL
--- NOTE | 2017-05-05 19:43 | Progress Note ---
Assessment and Plan Assessment Right Groin abscess s/p I&D Poorly controlled DM II 2/2 med noncompliance. HTN, essen, chronic Morbid Obesity 2/2 excess calories. Med noncompliance Right groin pain. Plan increase Lantus to 20 units BID Add Regular Insulin 10 units QAC ID consulted. review recommendations continue IV abx add Levaquin inputs and recs of the surgeon reviewed and appreciated further pt mgt per hospital course dvt and GI ulcer prophylaxis Culture results no growth so far. continue to follow Subjective Date of service: 05/05/17 Principal diagnosis: DMT2, right groin abcess s/p I and D Interval history: Pt seen and examined. having pain in the right groin area. Objective - Constitutional Vitals: Vital Signs - 12hr 05/05/17 05/05/17 05/05/17 07:55 12:05 12:06 Temperature 99.0 F 99.0 F Pulse Rate 86 87 Respiratory 18 18 Rate Blood Pressure 130/83 139/90 O2 Sat by Pulse 99 99 Oximetry 05/05/17 05/05/17 17:19 17:20 Temperature 100.1 F H Pulse Rate 87 85 Respiratory 20 Rate Blood Pressure 158/95 O2 Sat by Pulse 98 97 Oximetry General appearance: Present: no acute distress, well-nourished - EENT Eyes: PERRL, EOM intact - Neck Neck: supple, normal ROM - Respiratory Respiratory effort: normal Respiratory: bilateral: CTA - Cardiovascular Rhythm: regular Heart Sounds: Present: S1 & S2. Absent: gallop, rub Extremities: pulses intact, No edema, normal color, Full ROM - Gastrointestinal General gastrointestinal: Present: soft, non-tender, non-distended, normal bowel sounds - Integumentary Integumentary: clear, warm, dry - Musculoskeletal Musculoskeletal: strength equal bilaterally - Neurologic Neurologic: moves all extremities - Psychiatric Psychiatric: memory intact, appropriate mood/affect, intact judgment & insight - Labs CBC & Chem 7: 05/05/17 06:43 05/04/17 00:44 Labs: Abnormal lab results 05/04/17 05/05/17 05/05/17 Range/Units 21:23 06:43 08:01 WBC 11.4 H (4.5-11.0) K/mm3 Hgb 11.5 L (11.8-15.2) gm/dl Lymph % (Auto) 7.3 L (13.4-35.0) % [place] % (Auto) 11.1 H (0.0-7.3) % Lymph # 0.8 L (1.2-5.4) K/mm3 [place] # 1.3 H (0.0-0.8) K/mm3 Seg Neutrophils % 79.9 H (40.0-70.0) % Seg Neutrophils # 9.1 H (1.8-7.7) K/mm3 POC Glucose 217 H 153 H (70-105) 05/05/17 05/05/17 Range/Units 12:11 17:24 WBC (4.5-11.0) K/mm3 Hgb (11.8-15.2) gm/dl Lymph % (Auto) (13.4-35.0) % [place] % (Auto) (0.0-7.3) % Lymph # (1.2-5.4) K/mm3 [place] # (0.0-0.8) K/mm3 Seg Neutrophils % (40.0-70.0) % Seg Neutrophils # (1.8-7.7) K/mm3 POC Glucose 166 H 118 H (70-105) - Imaging and cardiology CT scan - abdomen: report reviewed
[2017-05-05] MEDS: SODIUM CHLORIDE FLUSH SYRINGE 10 ML IV SCH ×2 (19:50→22:30)
[2017-05-05] MEDS: VANCOMYCIN 1,750 MG in NACL 0.9% 500 ML 500 ML IV SCH (22:32)
[2017-05-05] MEDS: TYLENOL PO PRN (22:36)
[2017-05-06] MEDS: UNASYN/NS 3 GM/100 ML 3 GM/100 ML BAG IV SCH ×4 (04:07→21:06)
[2017-05-06] MEDS: PERCOCET 5/325 PO PRN ×3 (04:07→21:07)
[2017-05-06 04:51] LABS: Basophils % (Auto) 0.4 % (0.0-1.8); Eosinophils # (Auto) 0.2 K/mm3 (0.0-0.4); Eosinophils % (Auto) 1.5 % (0.0-4.3); Hematocrit 35.9 % (35.5-45.6); Hemoglobin 12.1 gm/dl (11.8-15.2); Lymphocytes # (Auto) 0.9 K/mm3 (1.2-5.4); Lymphocytes % (Auto) 7.5 % (13.4-35.0); Mean Corpuscular HGB Conc 34 % (32-34); Mean Corpuscular Hemoglobin 30 pg (28-32); Mean Corpuscular Volume 89 fl (84-94); Monocytes # (Auto) 1.5 K/mm3 (0.0-0.8); Monocytes % (Auto) 11.9 % (0.0-7.3); Platelet Count 207 K/mm3 (140-440); Red Blood Count 4.03 M/mm3 (3.65-5.03); Red Cell Distribution Width 14.8 % (13.2-15.2)
[2017-05-06 05:13] LABS: Albumin 2.8 g/dL (3.9-5); Calcium 8.4 mg/dL (8.4-10.2)
[2017-05-06] MEDS: PEPCID PO SCH ×2 (09:25→21:06)
[2017-05-06] MEDS: HumuLIN R SUB-Q SCH ×4 (09:26→21:07)
[2017-05-06] MEDS: COZAAR PO SCH (09:27)
[2017-05-06] MEDS: HEPARIN SUB-Q SCH ×2 (09:28→21:07)
[2017-05-06] MEDS: SODIUM CHLORIDE FLUSH SYRINGE 10 ML IV SCH ×2 (09:29→21:08)
[2017-05-06] MEDS: LANTUS SUB-Q SCH ×2 (13:02→21:08)
[2017-05-06] MEDS ORDERED: NACL 0.9% 1000 ML 1,000 ML IV SCH (14:00)
--- NOTE | 2017-05-06 14:36 | Progress Note ---
Assessment and Plan 52 yo M with right groin abscess s/p bedside incision and drainage POD 1 1. continue IVF abx 2. wound cx - b hemolytic strept. final pending 3. will change packing tomorrow 4. monitor for fevers, repeat CBC in am 5. PRN pain control 6. IVF - 1 bag of NS today for dehydration - labs show mild increase in Internal Medicine Nurse Practitioner and hyponatremia. 7. consistent carb diet, will add protein supplements 8. strict glucose control Subjective Date of service: 05/06/17 Narrative: Patient seen and examined. He complains of pain and swelling of the scrotum. MAXIMUM TEMPERATURE at 100.6 overnight after repeat incision and drainage at the bedside. He has been tolerating a diet however his appetite is very poor. He admits to not drinking enough liquids. He has been up and ambulating in his room. Pain is well controlled. Objective Vital Signs - 12hr 05/06/17 05/06/17 05/06/17 06:58 07:23 10:26 Temperature 98.9 F 99.5 F Pulse Rate 82 Respiratory 20 20 Rate Blood Pressure Blood Pressure 134/85 [Right] O2 Sat by Pulse 97 Oximetry 05/06/17 05/06/17 05/06/17 11:26 11:48 11:49 Temperature 99.8 F H Pulse Rate 96 H 95 H Respiratory 18 18 Rate Blood Pressure 118/74 Blood Pressure [Right] O2 Sat by Pulse 95 96 Oximetry - General physical appearance Narrative Exam: General: Awake, alert, oriented 3. R groin: dressing with seropurulent drainage. Dressing removed. Packing present and left in place. Minimal purulent drainage from wound. Induration and TTP of right side and inferior portion of scrotum. No additional fluctuance in the groin or scrotal area. 4x4 gauze placed over packing. - Labs 05/06/17 04:17 05/06/17 04:17 Diabetes panel 05/06/17 Range/Units 04:17 Sodium 136 L (137-145) mmol/L Potassium 3.8 (3.6-5.0) mmol/L Chloride 98.5 (98-107) mmol/L Carbon Dioxide 22 (22-30) mmol/L BUN 14 (9-20) mg/dL Creatinine 2.1 H (0.8-1.5) mg/dL Glucose 137 H (75-100) mg/dL Calcium 8.4 (8.4-10.2) mg/dL AST 9 (5-40) units/L ALT 7 (7-56) units/L Alkaline Phosphatase 74 (35-129) units/L Total Protein 7.0 (6.3-8.2) g/dL Albumin 2.8 L (3.9-5) g/dL Calcium panel 05/06/17 Range/Units 04:17 Calcium 8.4 (8.4-10.2) mg/dL Albumin 2.8 L (3.9-5) g/dL Pituitary panel 05/06/17 Range/Units 04:17 Sodium 136 L (137-145) mmol/L Potassium 3.8 (3.6-5.0) mmol/L Chloride 98.5 (98-107) mmol/L Carbon Dioxide 22 (22-30) mmol/L BUN 14 (9-20) mg/dL Creatinine 2.1 H (0.8-1.5) mg/dL Glucose 137 H (75-100) mg/dL Calcium 8.4 (8.4-10.2) mg/dL Adrenal panel 05/06/17 Range/Units 04:17 Sodium 136 L (137-145) mmol/L Potassium 3.8 (3.6-5.0) mmol/L Chloride 98.5 (98-107) mmol/L Carbon Dioxide 22 (22-30) mmol/L BUN 14 (9-20) mg/dL Creatinine 2.1 H (0.8-1.5) mg/dL Glucose 137 H (75-100) mg/dL Calcium 8.4 (8.4-10.2) mg/dL Total Bilirubin 0.40 (0.1-1.2) mg/dL AST 9 (5-40) units/L ALT 7 (7-56) units/L Alkaline Phosphatase 74 (35-129) units/L Total Protein 7.0 (6.3-8.2) g/dL Albumin 2.8 L (3.9-5) g/dL
[2017-05-06] MEDS: VANCOMYCIN 1,750 MG in NACL 0.9% 500 ML 500 ML IV SCH (21:06)
[2017-05-07] MEDS: UNASYN/NS 3 GM/100 ML 3 GM/100 ML BAG IV SCH ×2 (04:25→15:49)
[2017-05-07 04:40] LABS: Basophils % (Auto) 0.2 % (0.0-1.8); Eosinophils # (Auto) 0.2 K/mm3 (0.0-0.4); Eosinophils % (Auto) 1.8 % (0.0-4.3); Hematocrit 35.7 % (35.5-45.6); Hemoglobin 11.8 gm/dl (11.8-15.2); Lymphocytes # (Auto) 0.8 K/mm3 (1.2-5.4); Lymphocytes % (Auto) 6.7 % (13.4-35.0); Mean Corpuscular HGB Conc 33 % (32-34); Mean Corpuscular Hemoglobin 29 pg (28-32); Mean Corpuscular Volume 88 fl (84-94); Monocytes # (Auto) 1.4 K/mm3 (0.0-0.8); Monocytes % (Auto) 11.5 % (0.0-7.3); Platelet Count 199 K/mm3 (140-440); Red Blood Count 4.06 M/mm3 (3.65-5.03); Red Cell Distribution Width 14.7 % (13.2-15.2)
[2017-05-07 04:58] LABS: Albumin 2.4 g/dL (3.9-5); Calcium 7.9 mg/dL (8.4-10.2)
[2017-05-07] MEDS: HumuLIN R SUB-Q SCH ×3 (08:10→17:00)
[2017-05-07] MEDS: COZAAR PO SCH (09:31)
[2017-05-07] MEDS: PEPCID PO SCH (09:31)
[2017-05-07] MEDS: SODIUM CHLORIDE FLUSH SYRINGE 10 ML IV SCH (10:00)
[2017-05-07] MEDS: LANTUS SUB-Q SCH (10:25)
--- NOTE | 2017-05-07 10:40 | Progress Note ---
Assessment and Plan Assessment Right Groin abscess s/p I&D Poorly controlled DM II 2/2 med noncompliance. HTN, essen, chronic Morbid Obesity 2/2 excess calories. Med noncompliance Right groin pain. Plan increase Lantus to 20 units BID Add Regular Insulin 10 units QAC ID consulted. review recommendations Wound Cx positive for beta hemolytic strep continue IV abx add Levaquin inputs and recs of the surgeon reviewed and appreciated dvt and GI ulcer prophylaxis Subjective Date of service: 05/07/17 Principal diagnosis: DMT2, right groin abcess s/p I and D Interval history: Pt seen and examined. Having pain in the right groin area.s/p i and D on bed side for right groin abcess. Feeling better Objective - Constitutional Vitals: Vital Signs - 12hr 05/07/17 05/07/17 04:57 09:00 Temperature 99.2 F 98.7 F Pulse Rate 82 88 Respiratory 20 20 Rate Blood Pressure 142/86 146/95 [Right] O2 Sat by Pulse 99 98 Oximetry General appearance: Present: no acute distress, well-nourished - EENT Eyes: PERRL, EOM intact Ears: bilateral: normal - Neck Neck: supple, normal ROM - Respiratory Respiratory effort: normal Respiratory: bilateral: CTA - Cardiovascular Rhythm: regular Heart Sounds: Present: S1 & S2. Absent: gallop, rub Extremities: pulses intact, No edema, normal color, Full ROM - Gastrointestinal General gastrointestinal: Present: soft, non-tender, non-distended, normal bowel sounds - Integumentary Integumentary: clear, warm, dry - Musculoskeletal Musculoskeletal: 1, strength equal bilaterally - Neurologic Neurologic: moves all extremities - Psychiatric Psychiatric: memory intact, appropriate mood/affect, intact judgment & insight - Labs CBC & Chem 7: 05/07/17 04:21 05/07/17 04:21 Labs: Abnormal lab results 05/06/17 05/06/17 05/06/17 Range/Units 12:39 16:39 21:09 WBC (4.5-11.0) K/mm3 Lymph % (Auto) (13.4-35.0) % [place] % (Auto) (0.0-7.3) % Lymph # (1.2-5.4) K/mm3 [place] # (0.0-0.8) K/mm3 Seg Neutrophils % (40.0-70.0) % Seg Neutrophils # (1.8-7.7) K/mm3 Creatinine (0.8-1.5) mg/dL Glucose (75-100) mg/dL POC Glucose 179 H 228 H 129 H (70-105) Calcium (8.4-10.2) mg/dL Albumin (3.9-5) g/dL Vancomycin Trough (5.0-20.0) ug/mL 05/07/17 05/07/17 05/07/17 Range/Units 00:01 04:21 04:21 WBC 12.4 H (4.5-11.0) K/mm3 Lymph % (Auto) 6.7 L (13.4-35.0) % [place] % (Auto) 11.5 H (0.0-7.3) % Lymph # 0.8 L (1.2-5.4) K/mm3 [place] # 1.4 H (0.0-0.8) K/mm3 Seg Neutrophils % 79.8 H (40.0-70.0) % Seg Neutrophils # 9.9 H (1.8-7.7) K/mm3 Creatinine 2.9 H (0.8-1.5) mg/dL Glucose 131 H (75-100) mg/dL POC Glucose (70-105) Calcium 7.9 L (8.4-10.2) mg/dL Albumin 2.4 L (3.9-5) g/dL Vancomycin Trough 27.9 H (5.0-20.0) ug/mL 05/07/17 05/07/17 Range/Units 08:21 09:38 WBC (4.5-11.0) K/mm3 Lymph % (Auto) (13.4-35.0) % [place] % (Auto) (0.0-7.3) % Lymph # (1.2-5.4) K/mm3 [place] # (0.0-0.8) K/mm3 Seg Neutrophils % (40.0-70.0) % Seg Neutrophils # (1.8-7.7) K/mm3 Creatinine (0.8-1.5) mg/dL Glucose (75-100) mg/dL POC Glucose 130 H 157 H (70-105) Calcium (8.4-10.2) mg/dL Albumin (3.9-5) g/dL Vancomycin Trough (5.0-20.0) ug/mL
[2017-05-07] MEDS: HEPARIN SUB-Q SCH ×2 (10:45→22:37)
--- NOTE | 2017-05-07 13:44 | Progress Note ---
Assessment and Plan 52 yo M with right groin abscess s/p bedside incision and drainage POD 2 1. continue IV abx 2. wound cx - b hemolytic strept. DC MRSA precautions 3. daily wound care to be resumed by wound care nurse in am 4. WBC remains stable but mildly elevated, continue to monitor 5. 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 consistent carb diet, protein supplements 8. strict glucose control D/W Dr. Miller Subjective Date of service: 05/07/17 Narrative: Pt seen and examined. Feels dehydrated. Still not taking in much PO secondary to poor appetite. No n/v. Pain at surgical site is controlled. Tm 99.7 overnight. Objective Vital Signs - 12hr 05/07/17 05/07/17 04:57 09:00 Temperature 99.2 F 98.7 F Pulse Rate 82 88 Respiratory 20 20 Rate Blood Pressure 142/86 146/95 [Right] O2 Sat by Pulse 99 98 Oximetry - General physical appearance Narrative Exam: Gen: AAOx3. NAD : packing removed from right groin incision - seropurulent drainage on dressing. Wound is clean without additional drainage or fluctuance. Mild induration of dependent portion of scrotum, NT, no fluctuance. Wound packed with 1/4 inch iodoform packing (one piece) and covered with 4x4 gauze. - Labs 05/07/17 04:21 05/07/17 04:21 Diabetes panel 05/07/17 Range/Units 04:21 Sodium 137 (137-145) mmol/L Potassium 4.3 (3.6-5.0) mmol/L Chloride 99.1 (98-107) mmol/L Carbon Dioxide 22 (22-30) mmol/L BUN 17 (9-20) mg/dL Creatinine 2.9 H (0.8-1.5) mg/dL Glucose 131 H (75-100) mg/dL Calcium 7.9 L (8.4-10.2) mg/dL AST 11 (5-40) units/L ALT 7 (7-56) units/L Alkaline Phosphatase 71 (35-129) units/L Total Protein 6.6 (6.3-8.2) g/dL Albumin 2.4 L (3.9-5) g/dL Calcium panel 05/07/17 Range/Units 04:21 Calcium 7.9 L (8.4-10.2) mg/dL Albumin 2.4 L (3.9-5) g/dL Pituitary panel 05/07/17 Range/Units 04:21 Sodium 137 (137-145) mmol/L Potassium 4.3 (3.6-5.0) mmol/L Chloride 99.1 (98-107) mmol/L Carbon Dioxide 22 (22-30) mmol/L BUN 17 (9-20) mg/dL Creatinine 2.9 H (0.8-1.5) mg/dL Glucose 131 H (75-100) mg/dL Calcium 7.9 L (8.4-10.2) mg/dL Adrenal panel 05/07/17 Range/Units 04:21 Sodium 137 (137-145) mmol/L Potassium 4.3 (3.6-5.0) mmol/L Chloride 99.1 (98-107) mmol/L Carbon Dioxide 22 (22-30) mmol/L BUN 17 (9-20) mg/dL Creatinine 2.9 H (0.8-1.5) mg/dL Glucose 131 H (75-100) mg/dL Calcium 7.9 L (8.4-10.2) mg/dL Total Bilirubin 0.30 (0.1-1.2) mg/dL AST 11 (5-40) units/L ALT 7 (7-56) units/L Alkaline Phosphatase 71 (35-129) units/L Total Protein 6.6 (6.3-8.2) g/dL Albumin 2.4 L (3.9-5) g/dL
[2017-05-07] MEDS: NACL 0.9% 1000 ML 1,000 ML IV SCH ×2 (13:57→22:37)
[2017-05-08] MEDS: HumuLIN R SUB-Q SCH ×3 (03:25→22:47)
[2017-05-08] MEDS: LANTUS SUB-Q SCH ×2 (04:14→22:50)
[2017-05-08] MEDS: PERCOCET 5/325 PO PRN ×3 (04:46→17:20)
[2017-05-08 04:47] LABS: Basophils % (Auto) 0.3 % (0.0-1.8); Eosinophils # (Auto) 0.2 K/mm3 (0.0-0.4); Hematocrit 34.3 % (35.5-45.6); Hemoglobin 11.4 gm/dl (11.8-15.2); Lymphocytes # (Auto) 0.8 K/mm3 (1.2-5.4); Lymphocytes % (Auto) 7.1 % (13.4-35.0); Mean Corpuscular HGB Conc 33 % (32-34); Mean Corpuscular Hemoglobin 29 pg (28-32); Mean Corpuscular Volume 88 fl (84-94); Monocytes # (Auto) 1.3 K/mm3 (0.0-0.8); Monocytes % (Auto) 12.2 % (0.0-7.3); Platelet Count 223 K/mm3 (140-440); Red Blood Count 3.91 M/mm3 (3.65-5.03); Red Cell Distribution Width 14.6 % (13.2-15.2)
[2017-05-08] MEDS: UNASYN/NS 3 GM/100 ML 3 GM/100 ML BAG IV SCH ×3 (04:48→19:30)
[2017-05-08 05:03] LABS: Albumin 2.3 g/dL (3.9-5); Calcium 7.6 mg/dL (8.4-10.2)
[2017-05-08] MEDS: SODIUM CHLORIDE FLUSH SYRINGE 10 ML IV SCH ×3 (06:00→22:00)
[2017-05-08] MEDS ORDERED: NACL 0.9% 1000 ML 1,000 ML IV ONE (11:00)
[2017-05-08] MEDS: PEPCID PO SCH (11:01)
[2017-05-08] MEDS: COREG PO SCH ×3 (11:02→23:22)
[2017-05-08] MEDS: NORVASC PO SCH ×2 (11:03→18:21)
--- NOTE | 2017-05-08 12:07 | Progress Note ---
Assessment and Plan - Patient Problems (1) Abscess Current Visit: Yes Status: Acute Plan to address problem: Patient stable. WBC normal today. Pt appears better today. Recommend Sitz bath this AM. Discussed with nurse. Packing to be changed today per wound care recommendations. Continue routine wound care. No further surgical intervention at this time. Please call with questions. ok to discharge home when cleared by primary team. Time=15min Subjective Date of service: 05/08/17 Patient Reports: Positive: feels better (Pain is less. ) Objective Vital Signs - 12hr 05/08/17 05/08/17 05/08/17 04:00 04:46 05:46 Temperature 99.0 F Pulse Rate 89 Respiratory 18 17 17 Rate Blood Pressure 152/92 [Right] O2 Sat by Pulse 98 Oximetry 05/08/17 07:45 Temperature 98.3 F Pulse Rate 74 Respiratory 20 Rate Blood Pressure 153/101 [Right] O2 Sat by Pulse 98 Oximetry - General physical appearance no distress, no pain, other (Looks like he has more energy) - Respiratory normal expansion, normal respiratory effort - Genitourinary other (+purulent drainage. Packing in place. Less tender to palpation. no erythema appreciated) - Labs 05/08/17 04:22 05/08/17 04:22 Diabetes panel 05/08/17 Range/Units 04:22 Sodium 139 (137-145) mmol/L Potassium 4.1 (3.6-5.0) mmol/L Chloride 103.1 (98-107) mmol/L Carbon Dioxide 21 L (22-30) mmol/L BUN 16 (9-20) mg/dL Creatinine 2.8 H (0.8-1.5) mg/dL Glucose 109 H (75-100) mg/dL Calcium 7.6 L (8.4-10.2) mg/dL AST 9 (5-40) units/L ALT 7 (7-56) units/L Alkaline Phosphatase 67 (35-129) units/L Total Protein 6.4 (6.3-8.2) g/dL Albumin 2.3 L (3.9-5) g/dL Calcium panel 05/08/17 Range/Units 04:22 Calcium 7.6 L (8.4-10.2) mg/dL Albumin 2.3 L (3.9-5) g/dL Pituitary panel 05/08/17 Range/Units 04:22 Sodium 139 (137-145) mmol/L Potassium 4.1 (3.6-5.0) mmol/L Chloride 103.1 (98-107) mmol/L Carbon Dioxide 21 L (22-30) mmol/L BUN 16 (9-20) mg/dL Creatinine 2.8 H (0.8-1.5) mg/dL Glucose 109 H (75-100) mg/dL Calcium 7.6 L (8.4-10.2) mg/dL Adrenal panel 05/08/17 Range/Units 04:22 Sodium 139 (137-145) mmol/L Potassium 4.1 (3.6-5.0) mmol/L Chloride 103.1 (98-107) mmol/L Carbon Dioxide 21 L (22-30) mmol/L BUN 16 (9-20) mg/dL Creatinine 2.8 H (0.8-1.5) mg/dL Glucose 109 H (75-100) mg/dL Calcium 7.6 L (8.4-10.2) mg/dL Total Bilirubin 0.20 (0.1-1.2) mg/dL AST 9 (5-40) units/L ALT 7 (7-56) units/L Alkaline Phosphatase 67 (35-129) units/L Total Protein 6.4 (6.3-8.2) g/dL Albumin 2.3 L (3.9-5) g/dL
--- NOTE | 2017-05-08 13:59 | Progress Note ---
Assessment and Plan Assessment and plan: Right Groin abscess s/p I&D -Wound culture came back positive for beta-hemolytic strep, group B -antibiotic changed to ampicillin/sulbactam -ID consulted. Acute kidney injury, probably secondary to vancomycin use. -We'll give IV fluid bolus and continue maintenance IV fluid. -queen producer consulted DM II with hyperglycemia. -Blood glucose improved. Essential HTN -BP uncontrolled, amlodipine and hydralazine added Hyponatremia, resolved Disposition: discharge patient when medically stable. History Interval history: Patient is a 52-year-old male admitted for right groin abscess. He complained of pain on the right groin which is improved with the pain medication Hospitalist Physical - Constitutional Vitals: Temp Pulse Resp BP Pulse Ox 98.8 F 69 18 162/104 93 05/08/17 12:48 05/08/17 12:48 05/08/17 12:48 05/08/17 12:48 05/08/17 12:48 General appearance: Present: no acute distress, well-nourished - EENT Eyes: Present: PERRL, EOM intact ENT: hearing intact - Neck Neck: Present: supple - Respiratory Respiratory effort: normal Respiratory: bilateral: CTA - Cardiovascular Rhythm: regular Heart Sounds: Present: S1 & S2 - Extremities Extremity abnormal: edema (trace in BLE) - Abdominal General gastrointestinal: soft, non-tender, normal bowel sounds - Neurologic Neurologic: CNII-XII intact Results - Labs CBC & Chem 7: 05/08/17 04:22 05/08/17 04:22 Labs: Laboratory Last Values WBC 10.8 K/mm3 (4.5-11.0) 05/08/17 04:22 RBC 3.91 M/mm3 (3.65-5.03) 05/08/17 04:22 Hgb 11.4 gm/dl (11.8-15.2) L 05/08/17 04:22 Hct 34.3 % (35.5-45.6) L 05/08/17 04:22 MCV 88 fl (84-94) 05/08/17 04:22 MCH 29 pg (28-32) 05/08/17 04:22 MCHC 33 % (32-34) 05/08/17 04:22 RDW 14.6 % (13.2-15.2) 05/08/17 04:22 Plt Count 223 K/mm3 (140-440) 05/08/17 04:22 Lymph % (Auto) 7.1 % (13.4-35.0) L 05/08/17 04:22 [place] % (Auto) 12.2 % (0.0-7.3) H 05/08/17 04:22 Eos % (Auto) 2.0 % (0.0-4.3) 05/08/17 04:22 Baso % (Auto) 0.3 % (0.0-1.8) 05/08/17 04:22 Lymph # 0.8 K/mm3 (1.2-5.4) L 05/08/17 04:22 [place] # 1.3 K/mm3 (0.0-0.8) H 05/08/17 04:22 Eos # 0.2 K/mm3 (0.0-0.4) 05/08/17 04:22 Baso # 0.0 K/mm3 (0.0-0.1) 05/08/17 04:22 Seg Neutrophils % 78.4 % (40.0-70.0) H 05/08/17 04:22 Seg Neutrophils # 8.5 K/mm3 (1.8-7.7) H 05/08/17 04:22 Sodium 139 mmol/L (137-145) 05/08/17 04:22 Potassium 4.1 mmol/L (3.6-5.0) 05/08/17 04:22 Chloride 103.1 mmol/L (98-107) 05/08/17 04:22 Carbon Dioxide 21 mmol/L (22-30) L 05/08/17 04:22 Anion Gap 19 mmol/L 05/08/17 04:22 BUN 16 mg/dL (9-20) 05/08/17 04:22 Creatinine 2.8 mg/dL (0.8-1.5) H 05/08/17 04:22 Estimated GFR 29 ml/min 05/08/17 04:22 BUN/Creatinine Ratio 6 % 05/08/17 04:22 Glucose 109 mg/dL (75-100) H 05/08/17 04:22 POC Glucose 101 (70-105) 05/08/17 07:56 Hemoglobin A1c 15.2 % (4-6) H 05/02/17 21:50 Calcium 7.6 mg/dL (8.4-10.2) L 05/08/17 04:22 Total Bilirubin 0.20 mg/dL (0.1-1.2) 05/08/17 04:22 AST 9 units/L (5-40) 05/08/17 04:22 ALT 7 units/L (7-56) 05/08/17 04:22 Alkaline Phosphatase 67 units/L (35-129) 05/08/17 04:22 C-Reactive Protein 20.40 mg/dL (0.00-1.30) H 05/04/17 17:38 Total Protein 6.4 g/dL (6.3-8.2) 05/08/17 04:22 Albumin 2.3 g/dL (3.9-5) L 05/08/17 04:22 Albumin/Globulin Ratio 0.6 % 05/08/17 04:22 Vancomycin Trough 27.9 ug/mL (5.0-20.0) H 05/07/17 00:01 Random Vancomycin 17.8 ug/mL (0-40.0) 05/08/17 04:22
[2017-05-08] MEDS ORDERED: VANCOMYCIN 1,750 MG in NACL 0.9% 500 ML 500 ML IV ONE (14:00)
[2017-05-08] MEDS ORDERED: APRESOLINE IV PRN (14:06)
[2017-05-08] MEDS ORDERED: POLYCILLIN 500 MG in NACL 0.9% 50 ML IV SCH (15:00)
[2017-05-08] MEDS: HEPARIN SUB-Q SCH ×2 (19:27→23:23)
[2017-05-08] MEDS: APRESOLINE PO SCH ×2 (19:28→23:21)
--- NOTE | 2017-05-08 20:31 | Progress Note ---
Assessment and Plan Assessment Right Groin abscess s/p I&D Poorly controlled DM II 2/2 med noncompliance. HTN, essen, chronic Morbid Obesity 2/2 excess calories. Med noncompliance Right groin pain secondary to right groin abcess. Plan increase Lantus to 20 units BID Add Regular Insulin 10 units QAC ID consulted. review recommendations Wound Cx positive for beta hemolytic strep continue IV abx add Levaquin inputs and recs of the surgeon reviewed and appreciated dvt and GI ulcer prophylaxis Subjective Date of service: 05/06/17 Principal diagnosis: DMT2, right groin abcess s/p I and D Interval history: Pt seen and examined. Having pain in the right groin area. s/p I&D. No fever. Feeling better Objective - Constitutional Vitals: Vital Signs - 12hr 05/08/17 05/08/17 12:48 16:00 Temperature 98.8 F 98.5 F Pulse Rate 69 82 Respiratory 18 20 Rate Blood Pressure 162/104 121/84 [Right] O2 Sat by Pulse 93 100 Oximetry General appearance: Present: no acute distress, well-nourished - EENT Eyes: PERRL, EOM intact Ears: bilateral: normal - Neck Neck: supple, normal ROM - Respiratory Respiratory effort: normal Respiratory: bilateral: CTA - Cardiovascular Rhythm: regular Heart Sounds: Present: S1 & S2. Absent: gallop, rub Extremities: pulses intact, No edema, normal color, Full ROM - Gastrointestinal General gastrointestinal: Present: soft, non-tender, non-distended, normal bowel sounds - Integumentary Integumentary: clear, warm, dry - Musculoskeletal Musculoskeletal: 1, strength equal bilaterally - Neurologic Neurologic: moves all extremities - Psychiatric Psychiatric: memory intact, appropriate mood/affect, intact judgment & insight - Labs CBC & Chem 7: 05/08/17 04:22 05/08/17 04:22 Labs: Abnormal lab results 05/08/17 05/08/17 05/08/17 Range/Units 04:22 04:22 17:14 Hgb 11.4 L (11.8-15.2) gm/dl Hct 34.3 L (35.5-45.6) % Lymph % (Auto) 7.1 L (13.4-35.0) % [place] % (Auto) 12.2 H (0.0-7.3) % Lymph # 0.8 L (1.2-5.4) K/mm3 [place] # 1.3 H (0.0-0.8) K/mm3 Seg Neutrophils % 78.4 H (40.0-70.0) % Seg Neutrophils # 8.5 H (1.8-7.7) K/mm3 Carbon Dioxide 21 L (22-30) mmol/L Creatinine 2.8 H (0.8-1.5) mg/dL Glucose 109 H (75-100) mg/dL POC Glucose 223 H (70-105) Calcium 7.6 L (8.4-10.2) mg/dL Albumin 2.3 L (3.9-5) g/dL
--- NOTE | 2017-05-08 22:03 | Consultation ---
History of Present Illness - Reason for Consult Consult date: 05/08/17 acute renal failure Requesting physician: BILL SANTIAGO - History of Present Illness This is a 52yo AA M with PMHx of hypertension, CHF, who initially presented to the ED with complaints of right groin abscess. Patient stated symptoms started 1 week [employer] and started to drain. Patient had similar episode last year on the left groin. Patient denied any testicular pain. Patient denied any fever, chills, nausea, vomiting, headache, stiff neck, abdominal pain, numbness or tingling, SOB, CP, palpitations, dysuria. Pt was admitted for IV ABX treatment and surgical I&D. Pt is currently receiving Vancomycin along with Ampicillin/ Sulbactam. Course was complicated by LIANG with BUN/Cr rising to 16/2.8mg/dl from admission Cr of 1.5mg/dl, for which renal consult is requested. pt did not have any hypotensive episodes, remains non-oliguric. Pt denies recent NSAIDs use however received CT pelvis with IV contrast on 05/04. Past History Past Medical History: diabetes, heart failure, hypertension Past Surgical History: Other (left groin I&D) Social history: alcohol abuse (occasional). denies: smoking, prescription drug abuse, IV drug use Family history: no significant family history Medications and Allergies Allergies Allergy/AdvReac Type Severity Reaction Status Date / Time No Known Allergies Allergy Unverified 06/02/14 09:21 Active Meds: Active Medications Acetaminophen (Tylenol) 650 mg PO Q4H PRN PRN Reason: Pain MILD(1-3)/Fever >100.5/ALVAREZ Last Admin: 05/05/17 22:36 Dose: 650 mg Amlodipine Besylate (Norvasc) 10 mg PO QDAY [facility] Last Admin: 05/08/17 11:03 Dose: 10 mg Carvedilol (Coreg) 25 mg PO BID [facility] Last Admin: 05/08/17 19:27 Dose: Not Given Famotidine (Pepcid) 20 mg PO DAILY [facility] Last Admin: 05/08/17 11:01 Dose: 20 mg Heparin Sodium (Porcine) (Heparin) 5,000 unit SUB-Q Q12HR [facility] Last Admin: 05/08/17 19:27 Dose: Not Given Hydralazine HCl (Apresoline) 20 mg IV Q4HR PRN PRN Reason: Blood Pressure Hydralazine HCl (Apresoline) 50 mg PO Q8HR [facility] Last Admin: 05/08/17 19:28 Dose: Not Given Sodium Chloride (Nacl 0.9% 1000 Ml) 1,000 mls @ 125 mls/hr IV DIRECT ABDULAZIZ Last Infusion: 05/08/17 19:26 Dose: Infused Ampicillin Sodium/Sulbactam Sodium (Unasyn/Ns 3 Gm/100 Ml) 3 gm in 100 mls @ 100 mls/hr IV Q6HR [facility]; Protocol Last Admin: 05/08/17 19:30 Dose: Not Given Insulin Glargine (Lantus) 10 units SUB-Q QHS [facility] Insulin Human Regular (Humulin R) 0 units SUB-Q ACHS [facility]; Protocol Last Admin: 05/08/17 19:29 Dose: Not Given Lorazepam (Ativan) 1 mg PO DAILY PRN PRN Reason: Wound Care Last Admin: 05/05/17 22:36 Dose: 1 mg Morphine Sulfate (Morphine) 2 mg IV Q4H PRN PRN Reason: Pain, Moderate (4-6) Last Admin: 05/07/17 13:50 Dose: 2 mg Oxycodone/Acetaminophen (Percocet 5/325) 1 tab PO Q6H PRN PRN Reason: Pain, Moderate (4-6) Last Admin: 05/08/17 17:20 Dose: 1 tab Sodium Chloride (Sodium Chloride Flush Syringe 10 Ml) 10 ml IV BID [facility] Last Admin: 05/08/17 19:28 Dose: Not Given Sodium Chloride (Sodium Chloride Flush Syringe 10 Ml) 10 ml IV PRN PRN PRN Reason: LINE FLUSH Zolpidem Tartrate (Ambien) 5 mg PO QHS PRN PRN Reason: Insomnia Review of Systems All systems: negative Constitutional: weakness Genitourinary Male: genital pain Exam - Vital Signs Vital signs: Vital Signs Temp Pulse Resp BP Pulse Ox 98.7 F 100 H 16 133/79 98 05/02/17 14:08 05/02/17 14:08 05/02/17 14:08 05/02/17 14:08 05/02/17 14:08 - General Appearance General appearance: well-developed, well-nourished, appears stated age EENT: ATNC, PERRL, mucous membranes moist Neck: Present: neck supple Respiratory: Clear to Ascultation Heart: regular, S1S2 Gastrointestinal: Present: normoactive bowel sounds Integumentary: no rash, other (trace b/l LE edema ) Neurologic: no focal deficit, alert and oriented x3, strength 5/5, CN 3-12 intact Psychiatric: mood/affect appropriate, cooperative Results - Lab Results 05/08/17 04:22 05/08/17 04:22 Most recent lab results Calcium 7.6 mg/dL (8.4-10.2) L 05/08/17 04:22 Laboratory Tests 05/04/17 05/07/17 05/08/17 17:38 00:01 04:22 POC Glucose Calcium 7.6 L AST 9 ALT 7 Alkaline Phosphatase 67 C-Reactive Protein 20.40 H Total Protein 6.4 Albumin 2.3 L Albumin/Globulin Ratio 0.6 Vancomycin Trough 27.9 H Random Vancomycin 05/08/17 05/08/17 04:22 07:56 POC Glucose 101 Calcium AST ALT Alkaline Phosphatase C-Reactive Protein Total Protein Albumin Albumin/Globulin Ratio Vancomycin Trough Random Vancomycin 17.8 Assessment and Plan - Patient Problems (1) Acute kidney failure with tubular necrosis Current Visit: Yes Status: Acute Plan to address problem: suspect acute tubular necrosis due to contrast induced nephropathy, given timing of CT w IV contrast and rising Cr. underlying baseline Cr is unknown, abnormal renal function upon admission, possibly due to pre-renal azotemia superimposed on CKD. If renal function continues to worsen will consider renal biopsy chec UA, urine lytes, urine protein/cr ratio, check urine eos cont IV NS dose vanco by level Supportive care for LIANG avoid nephrotoxins, NSAIDs, further IV contrast. will monitor lytes, renal fxn closely and make further recommendations. 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 will check UA, urine lytes urine protein/cr ratio supportive care for CKD. (5) Cellulitis Current Visit: Yes Status: Acute Qualifiers: Site of cellulitis: extremity Site of cellulitis of extremity: lower extremity Plan to address problem: ABXs treatment as per ID recommendations, dose meds according to current eGFR (6) HTN (hypertension) Current Visit: Yes Status: Chronic Qualifiers: Hypertension type: essential hypertension Qualified Code(s): I10 - Essential (primary) hypertension Plan to address problem: BP controlled. monitor on current meds
[2017-05-09] MEDS: UNASYN/NS 3 GM/100 ML 3 GM/100 ML BAG IV SCH ×3 (01:17→13:42)
[2017-05-09 05:30] LABS: Calcium 7.8 mg/dL (8.4-10.2)
[2017-05-09] MEDS: NACL 0.9% 1000 ML 1,000 ML IV SCH ×2 (06:05→21:48)
[2017-05-09] MEDS: APRESOLINE PO SCH ×3 (06:16→21:41)
--- NOTE | 2017-05-09 08:05 | Progress Note ---
Assessment and Plan Assessment Right Groin abscess s/p I&D Poorly controlled DM II 2/2 LIANG med noncompliance. HTN, essen, chronic Morbid Obesity 2/2 excess calories. Med noncompliance Right groin pain secondary to right groin abcess. Plan increase Lantus to 20 units BID Add Regular Insulin 10 units QAC Avoid nephrotoxic meds. Check serial Cr level ID consulted. review recommendations Wound Cx positive for beta hemolytic strep continue IV abx add Levaquin inputs and recs of the surgeon reviewed and appreciated dvt and GI ulcer prophylaxis Disositon: D/c when pt is sable anough and Creatinine level improves Subjective Date of service: 05/09/17 Principal diagnosis: DMT2, right groin abcess s/p I and D Interval history: Pt seen and examined. Having pain in the right groin area. s/p I&D. No fever. Feeling better Objective - Constitutional Vitals: Vital Signs - 12hr 05/08/17 05/08/17 05/09/17 23:21 23:22 00:00 Temperature 98.5 F Pulse Rate 78 78 78 Respiratory 18 Rate Blood Pressure 138/86 138/86 Blood Pressure 138/86 [Right] O2 Sat by Pulse 100 Oximetry 05/09/17 05/09/17 04:00 06:16 Temperature 98.6 F Pulse Rate 78 81 Respiratory 20 Rate Blood Pressure 136/85 Blood Pressure 133/88 [Right] O2 Sat by Pulse 97 Oximetry General appearance: Present: no acute distress, well-nourished - EENT Eyes: PERRL, EOM intact - Neck Neck: supple, normal ROM - Respiratory Respiratory effort: normal Respiratory: bilateral: CTA - Cardiovascular Rhythm: regular Heart Sounds: Present: S1 & S2. Absent: gallop, rub Extremities: pulses intact, No edema, normal color, Full ROM - Gastrointestinal General gastrointestinal: Present: soft, non-tender, non-distended, normal bowel sounds - Integumentary Integumentary: clear, warm, dry - Musculoskeletal Musculoskeletal: 1, strength equal bilaterally - Neurologic Neurologic: moves all extremities - Psychiatric Psychiatric: memory intact, appropriate mood/affect, intact judgment & insight - Labs CBC & Chem 7: 05/08/17 04:22 05/09/17 04:47 Labs: Abnormal lab results 05/08/17 05/08/17 05/08/17 Range/Units 11:36 17:14 21:51 Carbon Dioxide (22-30) mmol/L Creatinine (0.8-1.5) mg/dL Glucose (75-100) mg/dL POC Glucose 169 H 223 H 250 H (70-105) Calcium (8.4-10.2) mg/dL 05/09/17 Range/Units 04:47 Carbon Dioxide 20 L (22-30) mmol/L Creatinine 2.5 H (0.8-1.5) mg/dL Glucose 199 H (75-100) mg/dL POC Glucose (70-105) Calcium 7.8 L (8.4-10.2) mg/dL
[2017-05-09] MEDS: HumuLIN R SUB-Q SCH ×4 (08:42→22:46)
[2017-05-09 08:46] LABS: Bacteria,Urine 1+ /HPF (Negative); Bilirubin,Urine NEG (Negative); Blood,Urine NEG (Negative); Color,Urine Yellow (Yellow); Mucus,Urine FEW /HPF; Protein,Urine <15 mg/dL mg/dL (Negative); Urobilinogen,Urine < 2.0 mg/dL (<2.0)
[2017-05-09] MEDS: HEPARIN SUB-Q SCH ×2 (12:06→21:42)
[2017-05-09] MEDS: NORVASC PO SCH (12:07)
[2017-05-09] MEDS: PEPCID PO SCH (12:07)
[2017-05-09] MEDS: COREG PO SCH ×2 (12:08→21:42)
[2017-05-09] MEDS: SODIUM CHLORIDE FLUSH SYRINGE 10 ML IV SCH ×2 (12:20→22:47)
[2017-05-09 12:40] LABS: Creatinine,Urine 68.5 mg/dL (0.1-20.0)
--- NOTE | 2017-05-09 13:46 | Progress Note ---
Assessment and Plan - Patient Problems (1) Acute kidney failure with tubular necrosis Current Visit: Yes Status: Acute Plan to address problem: suspect acute tubular necrosis due to contrast induced nephropathy, given timing of CT w IV contrast and rising Cr. underlying baseline Cr is unknown, abnormal renal function upon admission, possibly due to pre-renal azotemia superimposed on CKD. renal function stabilizing on IV NS dose vanco by level Supportive care for LIANG avoid nephrotoxins, NSAIDs, further IV contrast. will monitor lytes, renal fxn closely and make further recommendations. 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 will check UA, urine lytes urine protein/cr ratio supportive care for CKD. (5) Cellulitis Current Visit: Yes Status: Acute Qualifiers: Site of cellulitis: extremity Site of cellulitis of extremity: lower extremity Plan to address problem: ABXs treatment as per ID recommendations, dose meds according to current eGFR (6) HTN (hypertension) Current Visit: Yes Status: Chronic Qualifiers: Hypertension type: essential hypertension Qualified Code(s): I10 - Essential (primary) hypertension Plan to address problem: BP controlled. monitor on current meds Subjective Date of service: 05/09/17 Principal diagnosis: DMT2, right groin abcess s/p I and D Interval history: pt awake, alert, in NAD Objective - Vital Signs Vital signs: Vital Signs - 12hr 05/09/17 05/09/17 05/09/17 04:00 06:16 07:30 Temperature 98.6 F 98.3 F Pulse Rate 78 81 82 Respiratory 20 18 Rate Blood Pressure 136/85 Blood Pressure 133/88 143/90 [Right] O2 Sat by Pulse 97 Oximetry 05/09/17 05/09/17 12:07 12:08 Temperature Pulse Rate 78 78 Respiratory Rate Blood Pressure 130/76 130/76 Blood Pressure [Right] O2 Sat by Pulse Oximetry - General Appearance General appearance: well-developed, well-nourished, appears stated age EENT: ATNC, PERRL, mucous membranes moist Neck: no JVD Respiratory: Present: Clear to Ascultation Cardiology: regular, S1S2 Gastrointestinal: normoactive bowel sounds Integumentary: no rash, other (no edema ) Neurologic: no focal deficit, alert and oriented x3, strength 5/5, CN 3-12 intact Psychiatric: mood/affect appropriate, cooperative - Lab 05/08/17 04:22 05/09/17 04:47 Most recent lab results Calcium 7.8 mg/dL (8.4-10.2) L 05/09/17 04:47 Urine Creatinine 68.5 mg/dL (0.1-20.0) H 05/09/17 07:50 Urine Sodium 132 mmol/L 05/09/17 07:50 Urine Total Protein 31 mg/dL (5-11.8) H 05/09/17 07:50
--- NOTE | 2017-05-09 15:00 | Progress Note ---
Assessment and Plan Assessment: 1) Sepsis: better. Etiology most likely right groin abscess. 2) Right groin skin and soft tissue infection/abscess: Patient with history of previous left groin abscess. Unknown history of MRSA. -S/P Bedside I+D on 05/05. Culture Beta hem Strep group B -CT of pelvic showed soft tissue swelling c/with cellulitis of the right groin inferior to the scrotum and some fluid with foci of air -CRP=20.4 3) Diabetes mellitus: Uncontrolled 4) Obesity 5) Hyponatremia 6) LIANG on CKD Plan: -stop unasyn - worsening creatinine -start ceftriaxone 2 g IV q day and add flagyl -upon discharge will do ceftriaxone 2 g IV qday and flagyl 500 mg PO TID for 3 weeks until 05/26. May need to be extended depending on clinical outcomes -place a PICC -monitor creatinine Thank you for your consultation, will follow up with you. Aileen Maddox MD Infectious Diseases Specialist [facility] ([facility] M [phone] O [phone] Subjective Date of service: 05/09/17 Principal diagnosis: DMT2, right groin abcess s/p I and D Interval history: Feels ok, still c/o right groin induration and pain. No fever. Microbiology: Blood cultures: 05/02 ngtd Wound cultures: 3/ Beta hem Strep group B Current Antimicrobials: unasyn 05/05 Previous Antimicrobials: clinda levaquin vanco Objective - Constitutional Vitals: Vital Signs Temp Pulse Resp BP Pulse Ox 98.3 F 78 18 130/76 97 05/09/17 07:30 05/09/17 12:08 05/09/17 07:30 05/09/17 12:08 05/09/17 04:00 Temperature -Last 24 Hours Temperature 98.3 F Temperature 98.6 F Temperature 98.5 F Temperature 98.2 F Temperature 98.5 F - Labs CBC & Chem 7: 05/08/17 04:22 05/09/17 04:47 Labs: Abnormal lab results 05/08/17 05/08/17 05/08/17 Range/Units 11:36 17:14 21:51 Carbon Dioxide (22-30) mmol/L Creatinine (0.8-1.5) mg/dL Glucose (75-100) mg/dL POC Glucose 169 H 223 H 250 H (70-105) Calcium (8.4-10.2) mg/dL Urine Creatinine (0.1-20.0) mg/dL Urine Total Protein (5-11.8) mg/dL 05/09/17 05/09/17 05/09/17 Range/Units 04:47 07:50 08:08 Carbon Dioxide 20 L (22-30) mmol/L Creatinine 2.5 H (0.8-1.5) mg/dL Glucose 199 H (75-100) mg/dL POC Glucose 183 H (70-105) Calcium 7.8 L (8.4-10.2) mg/dL Urine Creatinine 68.5 H (0.1-20.0) mg/dL Urine Total Protein 31 H (5-11.8) mg/dL 05/09/17 Range/Units 12:22 Carbon Dioxide (22-30) mmol/L Creatinine (0.8-1.5) mg/dL Glucose (75-100) mg/dL POC Glucose 193 H (70-105) Calcium (8.4-10.2) mg/dL Urine Creatinine (0.1-20.0) mg/dL Urine Total Protein (5-11.8) mg/dL
[2017-05-09] MEDS ORDERED: ROCEPHIN/NS 2 GM/100 ML 2 GM/100 ML BAG IV SCH (16:00)
[2017-05-09] MEDS: FLAGYL PO SCH ×2 (18:02→21:41)
[2017-05-09] MEDS: PERCOCET 5/325 PO PRN (21:40)
[2017-05-09] MEDS: LANTUS SUB-Q SCH (22:43)
[2017-05-10] MEDS: NACL 0.9% 1000 ML 1,000 ML IV SCH (04:29)
[2017-05-10] MEDS: APRESOLINE PO SCH ×3 (06:07→22:14)
[2017-05-10] MEDS: FLAGYL PO SCH ×3 (06:08→22:18)
[2017-05-10] MEDS: TYLENOL PO PRN ×2 (06:13→10:13)
[2017-05-10] MEDS: HumuLIN R SUB-Q SCH ×3 (08:58→17:49)
--- NOTE | 2017-05-10 09:05 | Progress Note ---
Assessment and Plan Assessment: 1) Sepsis: resolved. Etiology most likely right groin abscess. 2) Right groin skin and soft tissue infection/abscess: Patient with history of previous left groin abscess. Still marked induration right groin and scrotum. -S/P Bedside I+D on 05/05. Culture Beta hem Strep group B -CT of pelvic showed soft tissue swelling c/with cellulitis of the right groin inferior to the scrotum and some fluid with foci of air -CRP=20.4 3) Diabetes mellitus: Uncontrolled 4) Obesity 5) Hyponatremia 6) LIANG on CKD - better Plan: -continue ceftriaxone 2 g IV q day and flagyl -upon discharge will do ceftriaxone 2 g IV qday and flagyl 500 mg PO TID for 3 weeks until 05/26. May need to be extended depending on clinical outcomes -place a PICC -monitor creatinine -wound care as outpatient Ok to d/c from ID stand point once medically stable. ID clinic f/u on 05/18. Patient to call the office. Thank you for your consultation, will follow up with you. Aileen Maddox MD Infectious Diseases Specialist [facility] ([facility]) M [phone] O [phone] Subjective Date of service: 05/10/17 Principal diagnosis: DMT2, right groin abcess s/p I and D Interval history: Feels ok, still c/o right groin induration and pain /10. No fever. Microbiology: Blood cultures: 05/02 ngtd Wound cultures: 3/ Beta hem Strep group B Current Antimicrobials: ceftriaxone 05/09 flagyl 05/09 Previous Antimicrobials: clinda levaquin vanco unasyn 05/05-05/09 Objective - Exam Narrative Exam: General appearance: Alert in NAD, conversant Eyes: anicteric sclerae, moist conjunctivae; no lid-lag; PERRLA HENT: Atraumatic; oropharynx clear Neck: Trachea midline; supple, no thyromegaly or lymphadenopathy Lungs: CTA, with normal respiratory effort and no intercostal retractions CV: RRR, no murmurs Abdomen: Soft, non-tender; no masses or hepatosplenomegaly Extremities: Right groin induration extended to right scrotum with central wound covered with dressings minimal drainage. Skin: Normal temperature, turgor and texture; no rash, ulcers or subcutaneous nodules Psych: Appropriate affect, alert and oriented to person, place and time. Neuro: alert and oriented x 3. Moving all extermities Lines: - Constitutional Vitals: Vital Signs Temp Pulse Resp BP Pulse Ox 97.2 F L 82 18 134/80 99 05/10/17 07:55 05/10/17 07:57 05/10/17 07:55 05/10/17 07:55 05/10/17 07:57 Temperature -Last 24 Hours Temperature 97.2 F Temperature 98.8 F Temperature 98.8 F Temperature 98.4 F Temperature 99.4 F Temperature 99.6 F Temperature 97.6 F - Labs CBC & Chem 7: 05/08/17 04:22 05/09/17 04:47 Labs: Abnormal lab results 05/09/17 05/09/17 05/09/17 Range/Units 07:50 12:22 16:55 POC Glucose 193 H 268 H (70-105) Urine Creatinine 68.5 H (0.1-20.0) mg/dL Urine Total Protein 31 H (5-11.8) mg/dL 05/09/17 05/10/17 Range/Units 22:09 08:31 POC Glucose 229 H 200 H (70-105) Urine Creatinine (0.1-20.0) mg/dL Urine Total Protein (5-11.8) mg/dL
--- NOTE | 2017-05-10 09:56 | Progress Note ---
Assessment and Plan - Patient Problems (1) Abscess Current Visit: Yes Status: Acute Plan to address problem: Patient stable. Clinically, from the abscess standpoint, patient seems better. It's important that he continue to do the sitz baths. Packing to be changed per wound care recommendations. Continue routine wound care. No further surgical intervention at this time. Please call with questions. ok to discharge home when cleared by primary team. I have asked the nurse to give him IV pain medicine and nausea medicine for his headache and nausea. Time=15min Subjective Date of service: 05/10/17 Patient Reports: Positive: nausea, other (complaining of severe headache this morning associated with nausea. Pain in groin is much better.) Objective Vital Signs - 12hr 05/10/17 05/10/17 05/10/17 00:50 00:56 04:34 Temperature 98.4 F 98.8 F Pulse Rate 71 Respiratory 18 18 Rate Blood Pressure 115/69 127/79 Blood Pressure [Right] O2 Sat by Pulse 96 97 Oximetry 05/10/17 05/10/17 05/10/17 04:42 06:07 07:55 Temperature 98.8 F 97.2 F L Pulse Rate 81 81 81 Respiratory 18 18 Rate Blood Pressure 127/79 134/80 Blood Pressure 127/79 [Right] O2 Sat by Pulse 99 Oximetry 05/10/17 07:57 Temperature Pulse Rate 82 Respiratory Rate Blood Pressure Blood Pressure [Right] O2 Sat by Pulse 99 Oximetry - General physical appearance other (appears uncomfortable as a result of the headache. Conversation is appropriate.) - Respiratory normal expansion, normal respiratory effort - Genitourinary other (do not examine as patient was not feeling well from the headache and nausea.) - Labs 05/08/17 04:22 05/09/17 04:47
[2017-05-10] MEDS ORDERED: cefTRIAXone 2 GM in NACL 0.9% 20 ML IV SCH (10:00)
[2017-05-10] MEDS ORDERED: ZOFRAN PO PRN (10:06)
[2017-05-10] MEDS ORDERED: ZOFRAN IV PRN (10:08)
[2017-05-10] MEDS: PEPCID PO SCH (10:15)
[2017-05-10] MEDS: COREG PO SCH ×2 (10:16→22:17)
[2017-05-10] MEDS: NORVASC PO SCH (10:55)
[2017-05-10] MEDS: SODIUM CHLORIDE FLUSH SYRINGE 10 ML IV SCH ×2 (10:56→22:37)
[2017-05-10] MEDS: HEPARIN SUB-Q SCH ×2 (11:13→22:19)
--- NOTE | 2017-05-10 12:49 | XRay Report ---
AP CHEST: HISTORY: Left arm PICC placement A left arm PICC has been inserted which terminates at the cavoatrial junction. Borderline mild cardiomegaly is suspected. Normal pulmonary vascularity. The lungs are clear. The bony structures are intact. IMPRESSION: Adequate placement of a left arm PICC.
[2017-05-10 13:52] LABS: Calcium 7.6 mg/dL (8.4-10.2)
[2017-05-10] MEDS: LANTUS SUB-Q SCH (22:14)
[2017-05-11] MEDS: HumuLIN R SUB-Q SCH ×3 (05:41→12:06)
[2017-05-11] MEDS: FLAGYL PO SCH ×3 (05:50→14:00)
[2017-05-11] MEDS: TYLENOL PO PRN (05:51)
[2017-05-11] MEDS: APRESOLINE PO SCH ×2 (06:14→14:00)
[2017-05-11] MEDS: COREG PO SCH ×2 (08:52→10:00)
[2017-05-11] MEDS: PEPCID PO SCH (08:53)
[2017-05-11] MEDS: HEPARIN SUB-Q SCH ×2 (08:54→10:00)
[2017-05-11] MEDS: NORVASC PO SCH ×2 (08:55→10:00)
--- NOTE | 2017-05-11 09:14 | Discharge Summary ---
Providers - Providers Date of Admission: 05/02/17 17:44 Date of discharge: 05/11/17 Attending physician: CORAL JEFFERS 05/02/17 21:38 Consult to Physician [CONS] Routine Comment: Consulting Provider: SERENA DUMONT Physician Instructions: Reason For Exam: Rt Groin Abscess 05/03/17 17:42 Consult to Physician [CONS] Routine Comment: Consulting Provider: TURNER WOOD Physician Instructions: Reason For Exam: groin abscess 05/08/17 14:09 Consult to Infection Control Nurse [CONS] Routine Reason For Exam: RT groin abscess 05/08/17 14:12 Consult to Physician [CONS] Routine Comment: Consulting Provider: EFRAIN CHAPMAN Physician Instructions: Reason For Exam: LIANG 05/09/17 15:09 Consult to Case Management [CONS] Stat Services 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 May need to be extended depending on clinical outcomes Remove PICC line after last dose unless otherwise instructed. Lines: PICC Lab monitoring: CBC, BMP, CRP once a week preferly on Monday morning. Please fax results to [phone] and call [phone] for critical lab results. Aileen Wood Date: 05/09/17 05/09/17 15:10 Consult to PICC Line RN [CONS] Stat Reason For Exam: IV antibiotics Type Line:: PICC Primary care physician: [facility] Hospitalization Reason for admission: sepsis from right groin abcess, DM Condition: Stable Pertinent studies: CXR, Pelvic CT Procedures: i and D of right groin abcess Hospital course: [id number] AA male well nourished in appearance with pmh of HTN and CHF , no acute signs of distress presents to the ED with c/o of right groin abscess. Patient stated symptoms started last week and started to drain 3 days ago. Patient had similar episode last year on the left groin and that it lanced and subsided. Patient denies any testicular pain. Patient denies any fever, chills , nausea, vomiting, headache, stiff neck, abdominal pain, numbness or tingling. Patient denies any chest pain or shortness of breath. Patient denies any allergies. Had similar abscess in L groin in the past Abscess was drained in ER and drain was kept. Commence on iv antibioc. Cx of abcess yielded Beta hemolytic strep. Fever and pain improved. Still had induration in the groin area. Home iv antibx for 2 more weeks recommended by ID. PICC bogdan inserted and pt discharged home to local wound care and home iv antibiotic. Disposition: DC-01 TO HOME OR SELFCARE Time spent for discharge: 33 min Core Measure Documentation - Palliative Care Palliative Care/ Comfort Measures: Not Applicable - Core Measures Any of the following diagnoses?: none Exam - Constitutional Vitals: Temp Pulse Resp BP Pulse Ox 98.0 F 80 16 126/80 98 05/11/17 07:17 05/11/17 08:55 05/11/17 07:17 05/11/17 08:55 05/11/17 07:17 General appearance: Present: no acute distress, well-nourished - EENT Eyes: Present: PERRL - Neck Neck: Present: supple, normal ROM - Respiratory Respiratory effort: normal Respiratory: bilateral: CTA - Cardiovascular Heart Sounds: Present: S1 & S2. Absent: rub, click - Extremities Extremities: pulses symmetrical, No edema Peripheral Pulses: within normal limits - Abdominal General gastrointestinal: Present: soft, non-tender, non-distended, normal bowel sounds Male genitourinary: Present: normal - Integumentary Integumentary: Present: clear, warm, dry - Musculoskeletal Musculoskeletal: gait normal, strength equal bilaterally - Psychiatric Psychiatric: appropriate mood/affect, intact judgment & insight - Neurologic Neurologic: CNII-XII intact, moves all extremities Plan Activity: advance as tolerated, fall precautions Weight Bearing Status: Non-Weight Bearing Diet: diabetic Durable Medical Equipment Needed Upon Discharge: other (home iv antibiotic) Follow up with: PRIMARY CARE, [Primary Care Provider] - 3-5 Days Prescriptions: amLODIPine [Norvasc] 10 mg PO QDAY #30 tablet Carvedilol [Coreg] 25 mg PO BID #30 tablet cefTRIAXone [Ceftriaxone] 2 gm IV Q24HR #10 vial hydrALAZINE [Apresoline TAB] 50 mg PO Q8HR #90 tablet Insulin Regular, Human [HumuLIN R] 4 units SUB-Q ACHS #300 units LORazepam [Ativan] 1 mg PO DAILY PRN #20 tablet PRN Reason: Wound Care metroNIDAZOLE [Flagyl TAB] 500 mg PO Q8HR #30 tablet oxyCODONE /ACETAMINOPHEN [Percocet 5/325 mg] 1 tab PO Q6H PRN #20 tablet PRN Reason: Pain, Moderate (4-6)
--- NOTE | 2017-05-11 11:00 | Progress Note ---
Assessment and Plan - Patient Problems (1) Abscess Current Visit: Yes Status: Acute Plan to address problem: Patient stable. Clinically, from the abscess standpoint, patient seems better. It's important that he continue to do the sitz baths. Packing to be changed by nurse this AM. Sitz bath to be done this AM as well. Continue routine wound care and Sitz baths at home. No further surgical intervention at this time. Please call with questions. ok to discharge home when cleared by primary team. Time=15min Subjective Date of service: 05/11/17 Patient Reports: Positive: no new complaints, feels better (from groin standpoint. pain has resolved. Not doing Sitz baths.) Objective Vital Signs - 12hr 05/10/17 05/11/17 05/11/17 23:15 04:39 06:14 Temperature 99.1 F 99.0 F Pulse Rate 90 83 83 Respiratory 20 20 Rate Blood Pressure 155/97 136/86 136/86 O2 Sat by Pulse 96 96 Oximetry 05/11/17 05/11/17 05/11/17 07:17 08:52 08:55 Temperature 98.0 F Pulse Rate 81 80 80 Respiratory 16 Rate Blood Pressure 126/80 126/80 126/80 O2 Sat by Pulse 98 Oximetry - General physical appearance no distress, no pain - Respiratory normal expansion, normal respiratory effort - Genitourinary other (some purulent drainages noted on the dressing. Examined with nurse. Induration is less on the superior aspect. Tenderness is much improved.) - Labs 05/08/17 04:22 05/10/17 12:17 Diabetes panel 05/10/17 Range/Units 12:17 Sodium 137 (137-145) mmol/L Potassium 3.9 (3.6-5.0) mmol/L Chloride 102.3 (98-107) mmol/L Carbon Dioxide 20 L (22-30) mmol/L BUN 11 (9-20) mg/dL Creatinine 1.9 H (0.8-1.5) mg/dL Glucose 209 H (75-100) mg/dL Calcium 7.6 L (8.4-10.2) mg/dL Calcium panel 05/10/17 Range/Units 12:17 Calcium 7.6 L (8.4-10.2) mg/dL Pituitary panel 05/10/17 Range/Units 12:17 Sodium 137 (137-145) mmol/L Potassium 3.9 (3.6-5.0) mmol/L Chloride 102.3 (98-107) mmol/L Carbon Dioxide 20 L (22-30) mmol/L BUN 11 (9-20) mg/dL Creatinine 1.9 H (0.8-1.5) mg/dL Glucose 209 H (75-100) mg/dL Calcium 7.6 L (8.4-10.2) mg/dL Adrenal panel 05/10/17 Range/Units 12:17 Sodium 137 (137-145) mmol/L Potassium 3.9 (3.6-5.0) mmol/L Chloride 102.3 (98-107) mmol/L Carbon Dioxide 20 L (22-30) mmol/L BUN 11 (9-20) mg/dL Creatinine 1.9 H (0.8-1.5) mg/dL Glucose 209 H (75-100) mg/dL Calcium 7.6 L (8.4-10.2) mg/dL
[2017-05-11 11:39] VITALS: BP 134/85
--- NOTE | 2017-05-11 14:14 | Progress Note ---
Assessment and Plan - Patient Problems (1) Acute kidney failure with tubular necrosis Current Visit: Yes Status: Acute Plan to address problem: suspect acute tubular necrosis due to contrast induced nephropathy, given timing of CT w IV contrast and rising Cr. underlying baseline Cr is unknown, abnormal renal function upon admission, possibly due to pre-renal azotemia superimposed on CKD. renal function improved with Cr down to 1.9 Supportive care for LIANG avoid nephrotoxins, NSAIDs, further IV contrast. 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 will check UA, urine lytes urine protein/cr ratio supportive care for CKD. (5) Cellulitis Current Visit: Yes Status: Acute Qualifiers: Site of cellulitis: extremity Site of cellulitis of extremity: lower extremity Plan to address problem: ABXs treatment as per ID recommendations, dose meds according to current eGFR (6) HTN (hypertension) Current Visit: Yes Status: Chronic Qualifiers: Hypertension type: essential hypertension Qualified Code(s): I10 - Essential (primary) hypertension Plan to address problem: BP controlled. monitor on current meds Subjective Date of service: 05/11/17 Principal diagnosis: DMT2, right groin abcess s/p I and D Interval history: pt awake, alert, in NAD Objective - Vital Signs Vital signs: Vital Signs - 12hr 05/11/17 05/11/17 05/11/17 04:39 06:14 07:17 Temperature 99.0 F 98.0 F Pulse Rate 83 83 81 Respiratory 20 16 Rate Blood Pressure 136/86 136/86 126/80 O2 Sat by Pulse 96 98 Oximetry 05/11/17 05/11/17 05/11/17 08:52 08:55 11:21 Temperature 97.0 F L Pulse Rate 80 80 78 Respiratory 18 Rate Blood Pressure 126/80 126/80 134/85 O2 Sat by Pulse 100 Oximetry - General Appearance General appearance: well-developed, well-nourished, appears stated age EENT: ATNC, PERRL, mucous membranes moist Neck: no JVD Respiratory: Present: Clear to Ascultation Cardiology: regular, S1S2 Gastrointestinal: normoactive bowel sounds Integumentary: no rash, other (no edema ) Neurologic: no focal deficit, alert and oriented x3, strength 5/5, CN 3-12 intact Psychiatric: mood/affect appropriate, cooperative - Lab 05/08/17 04:22 05/10/17 12:17 Most recent lab results Calcium 7.6 mg/dL (8.4-10.2) L 05/10/17 12:17 Urine Creatinine 68.5 mg/dL (0.1-20.0) H 05/09/17 07:50 Urine Sodium 132 mmol/L 05/09/17 07:50 Urine Total Protein 31 mg/dL (5-11.8) H 05/09/17 07:50
[2017-05-11] MEDS ORDERED: PEPCID PO SCH (22:00)
== END 2017-05-11 19:14 | disposition home or self-care (01) | DRG 871 ==
LOC: ED 13:36 → 3A 17:44 → 3B-SURG 20:28
PROVIDERS: ADMIT Internal Medicine; ATTEND Family Medicine
PROC: 0J9C3ZZ Drainage of Pelvic Region Subcutaneous Tissue and Fascia, Percutaneous Approach (ICD-10-PCS; principal; 2017-05-02)
PROC: 0V95XZZ Drainage of Scrotum, External Approach (ICD-10-PCS; 2017-05-05)
PROC: 02HV33Z Insertion of Infusion Device into Superior Vena Cava, Percutaneous Approach (ICD-10-PCS; 2017-05-10)
DX: A41.9 Sepsis, unspecified organism (principal); E11.00 Type 2 diabetes mellitus with hyperosmolarity without nonketotic hyperglycemic-hyperosmolar coma (NKHHC); N17.0 Acute kidney failure with tubular necrosis; L03.314 Cellulitis of groin; E87.1 Hypo-osmolality and hyponatremia; L02.214 Cutaneous abscess of groin; I13.0 Hypertensive heart and chronic kidney disease with heart failure and stage 1 through stage 4 chronic kidney disease, or unspecified chronic kidney disease; I50.9 Heart failure, unspecified; N14.1 Nephropathy induced by other drugs, medicaments and biological substances; E11.22 Type 2 diabetes mellitus with diabetic chronic kidney disease; N18.2 Chronic kidney disease, stage 2 (mild); E66.01 Morbid (severe) obesity due to excess calories; Z72.89 Other problems related to lifestyle; Z82.49 Family history of ischemic heart disease and other diseases of the circulatory system; Z68.37 Body mass index [BMI] 37.0-37.9, adult; Z91.14 Patient's other noncompliance with medication regimen
CPT/HCPCS: 36415; 71045; 72193; 80048; 80053; 80202; 81001; 82570; 82962; 83036; 84156; 84300; 85025; 86140; 87040; 87116; 89050; 93306; 96365; 96375; J0290; J0295; J0696; J1170; J1644; J1815; J2270; J2405; J3370; J7030; J7040; Q9967

== ENCOUNTER 2017-05-15 13:51 | Emergency (ER) | payer OTHER ==
[2017-05-15 14:02] VITALS: BP 170/96
--- NOTE | 2017-05-15 14:13 | Emergency Department Report ---
ED Recheck HPI - General Chief Complaint: Laceration/Recheck/Suture Stated Complaint: WOUND RECHECK Time Seen by Provider: 05/15/17 14:13 Source: patient Mode of arrival: Ambulatory Limitations: No Limitations - History of Present Illness Initial Comments: This is a 52-year-old male that is known to me nontoxic, well nourished in appearance, no acute signs of distress presents to the ED with c/o of intractable right groin. Patient was seen by me, weeks ago with a incision and drainage to the wound. Patient was admitted and was consulted with surgery and was discharged with PICC line for IV Rocephin 2G and Flagyl. Patient stated that his nurse wanted him to get a reevaluation of the wound. 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 Patient stated still has slight purulent drainage. Patient denies any testicular pain, swelling, fever, chills, headache, nausea, vomiting , chest pain, shortness of breathe. Patient denies any allergies. PMH includes DM and HTN. MD Complaint: wound re-check -: week(s) Initial Visit For: abscess Returns Today for: wound recheck Symptoms Since Prior Visit: no new symptoms, improved Associated Symptoms: none. denies: fever, chills, chest pain, shortness of breath, rash, malaise, [place], abdominal pain - Related Data Previous Rx's Medication Instructions Recorded Last Taken Type Carvedilol [Coreg] 25 mg PO BID #30 tablet 05/11/17 Unknown Rx Insulin Regular, Human [HumuLIN R] 4 units SUB-Q ACHS #300 units 05/11/17 Unknown Rx LORazepam [Ativan] 1 mg PO DAILY PRN #20 tablet 05/11/17 Unknown Rx amLODIPine [Norvasc] 10 mg PO QDAY #30 tablet 05/11/17 Unknown Rx cefTRIAXone [Ceftriaxone] 2 gm IV Q24HR #10 vial 05/11/17 Unknown Rx hydrALAZINE [Apresoline TAB] 50 mg PO Q8HR #90 tablet 05/11/17 Unknown Rx metroNIDAZOLE [Flagyl TAB] 500 mg PO Q8HR #30 tablet 05/11/17 Unknown Rx oxyCODONE /ACETAMINOPHEN [Percocet 1 tab PO Q6H PRN #20 tablet 05/11/17 Unknown Rx 5/325 mg] Allergies Allergy/AdvReac Type Severity Reaction Status Date / Time No Known Allergies Allergy Unverified 06/02/14 09:21 ED Review of Systems ROS: Stated complaint: WOUND RECHECK Other details as noted in HPI Constitutional: denies: chills, fever Eyes: denies: eye pain, eye discharge, vision change ENT: denies: ear pain, throat pain Respiratory: denies: cough, shortness of breath, wheezing Cardiovascular: denies: chest pain, palpitations Endocrine: no symptoms reported Gastrointestinal: denies: abdominal pain, nausea, diarrhea Genitourinary: denies: urgency, dysuria Musculoskeletal: denies: back pain, joint swelling, arthralgia Skin: denies: rash, lesions Neurological: denies: headache, weakness, paresthesias Psychiatric: denies: anxiety, depression Hematological/Lymphatic: denies: easy bleeding, easy bruising ED Past Medical Hx - Past Medical History Previous Medical History?: Yes Hx Congestive Heart Failure: Yes Hx Diabetes: Yes Hx Deep Vein Thrombosis: No - Surgical History Past Surgical History?: Yes Hx Pacemaker: No Hx Internal Defibrillator: No Additional Surgical History: Left arm PICC line, Left groin abscess surgery - Social History Smoking Status: Never Smoker Substance Use Type: Alcohol, Prescribed - Medications Home Medications: Home Medications Medication Instructions Recorded Confirmed Last Taken Type Carvedilol [Coreg] 25 mg PO BID #30 tablet 05/11/17 Unknown Rx Insulin Regular, Human [HumuLIN R] 4 units SUB-Q ACHS #300 units 05/11/17 Unknown Rx LORazepam [Ativan] 1 mg PO DAILY PRN #20 tablet 05/11/17 Unknown Rx amLODIPine [Norvasc] 10 mg PO QDAY #30 tablet 05/11/17 Unknown Rx cefTRIAXone [Ceftriaxone] 2 gm IV Q24HR #10 vial 05/11/17 Unknown Rx hydrALAZINE [Apresoline TAB] 50 mg PO Q8HR #90 tablet 05/11/17 Unknown Rx metroNIDAZOLE [Flagyl TAB] 500 mg PO Q8HR #30 tablet 05/11/17 Unknown Rx oxyCODONE /ACETAMINOPHEN [Percocet 1 tab PO Q6H PRN #20 tablet 05/11/17 Unknown Rx 5/325 mg] ED Physical Exam - General Limitations: No Limitations General appearance: alert, in no apparent distress - Head Head exam: Present: atraumatic, normocephalic - Eye Eye exam: Present: normal appearance - ENT ENT exam: Present: normal exam, mucous membranes moist - Neck Neck exam: Present: normal inspection, full ROM - Respiratory Respiratory exam: Present: normal lung sounds bilaterally. Absent: respiratory distress - Cardiovascular Cardiovascular Exam: Present: regular rate, normal rhythm. Absent: systolic murmur, diastolic murmur, rubs, gallop - GI/Abdominal GI/Abdominal exam: Present: soft, normal bowel sounds - Rectal Rectal exam: Present: deferred - Extremities Exam Extremities exam: Present: normal inspection - Back Exam Back exam: Present: normal inspection - Neurological Exam Neurological exam: Present: alert, oriented X3 - Psychiatric Psychiatric exam: Present: normal affect, normal mood - Skin Skin exam: Present: warm, dry, intact, normal color. Absent: rash - Other Other exam information: 1/ packing with 5 cm incision present. No purulent drainage noted. No induration, flutance or swelling noted. ED Course Vital Signs 05/15/17 13:58 Temperature 98.7 F Pulse Rate 87 Respiratory 18 Rate Blood Pressure 170/96 O2 Sat by Pulse 98 Oximetry - Reevaluation(s) Reevaluation #1: 05/15/17 14:34 Patient is speaking in full sentences with no signs of distress noted. ED Recheck MDM - Medical Decision Making The wound looks well with no signs of infeciton. No colitis or induration or any signs of worsening abscess. There was a dressing change made and I repacked the abscess with one fourth iodoform. Patient was educated on proper wound care. Sterile dressing has been applied. At time of discharge, the patient does not seem toxic or ill in appearance. No acute signs of distress noted. Patient agrees to discharge treatment plan of care. No further questions noted by the patient. Critical care attestation.: If time is entered above; I have spent that time in minutes in the direct care of this critically ill patient, excluding procedure time. ED Disposition Clinical Impression: Dressing change, Encounter for wound care Disposition: [id number] TO HOME OR SELFCARE Is pt being admited?: No Does the pt Need Aspirin: No Condition: Stable Additional Instructions: Follow-up with a primary care doctor in 3-5 days or if symptoms worsen and continue return to emergency room as soon as possible. Referrals: PRIMARY CARE, [Primary Care Provider] - 3-5 Days ENRICO ANN MD [Staff Physician] - 3-5 Days [facility] [Outside] - 3-5 Days [facility] [Outside] - 3-5 Days
== END 2017-05-15 14:52 | disposition home or self-care (01) ==
LOC: ED 13:51
DX: Z48.00 Encounter for change or removal of nonsurgical wound dressing (principal); I50.9 Heart failure, unspecified; E11.9 Type 2 diabetes mellitus without complications